=== PATIENT | male | born 1965 | race Caucasian/White ===

== ENCOUNTER 2025-08-05 14:23 | Outpatient (CLI) | payer OTHER, SELFPAY ==
--- NOTE | ~2025-08-05 | CT_ITS ---
EXAMINATION: CT sinus wo con COMPARISON: None HISTORY: J32.9 - Chronic sinusitis, unspecified TECHNIQUE: Axial images were obtained without IV contrast. Sagittal, coronal reconstruction images were obtained from the axial views. CT scan performed using dose optimization techniques including the following automated exposure control; adjustment of mA and/or kV; use of iterative reconstruction technique. Automatic exposure control was used to reduce radiation dose. Permanent radiation dose record is archived to PACS. FINDINGS: Visualized brain parenchyma, optic globes and soft tissues appear unremarkable Frontal sinuses are diminutive. Minimal mucosal thickening in the ethmoidal air cells. The maxillary sinuses are unremarkable. The ostiomeatal complexes are patent. Nasal septum in the midline. No significant thickening of the turbinates on either the nasal cavities. Sphenoid sinuses are unremarkable. No osseous destruction or wall thickening is identified. IMPRESSION: Minimal sinusitis Reviewed, dictated and finalized at location P. MAIN [facility]TER IMPRESSION: Minimal sinusitis
--- OUTSIDE RECORDS SUMMARY | 2025-08-05 15:24 | XMS_ITS | Clinical Summary ---
Author Organization [facility] Address [address] [place] [address] Care Team Providers Care Pricing Supervisor Name Role Phone Eriberto Romero MD Primary Care Provider [phone] Source Comments [facility],non-owned Affiliates and Associated Physician Practices is amultiple site organization consisting of ambulatory clinics and hospital sitesin [place], [place], [place] and [place]. This disclosure is being madepursuant to the Care Everywhere program and may not contain all information available regarding this patient. Last updated 18.[facility] Allergies No known active allergies Medications * This document contains information received from the source organization and may not represent a complete record from that organization. * Be aware that medications may not be up to date on this document. Alwaysverify current medications with the patient. SUTAB [id number] MG TABS Take 1 Dose by mouth once daily 07/09/20 21 Active doxycycline hyclate (Vibramycin) 100 MG capsule Take 1 (one) capsule by mouth 09/28/19 24 Active lisinopril-hydroCH LOROthiazide (Prinzide; Zestoretic) 20-25 MG tabletIndications: Essential (primary) hypertension Take 1 (one) tablet by mouth once daily 90 tablet 1 10/05/19 24 Active dulaglutide (Trulicity) 0.75 MG/0.5ML injectionIndicatio ns:Type 2 diabetes mellitus without complication, without long-term current use of insulin (HCC) Inject 0.5 mL subcutaneously every 7 days 6 mL 1 10/05/19 24 Active hydrocortisone (Hytone) 2.5 % creamIndications:O ther seborrheic dermatitis Apply to affected area 2 times daily as needed 20 g 3 10/05/19 24 Active mupirocin (Bactroban) 2 % ointment Apply to affected area 3 times daily 22 g 10/05/19 24 Active budesonide-formote rol (Symbicort) 80-4.5 MCG/ACT inhaler Take 2 (two) puffs by mouth 2 times daily 10.2 g 3 10/05/19 24 Active triamcinolone (Nasacort Aq) 55 MCG/ACT nasal inhaler [place] 2 (two) sprays into each nostril once daily 50.7 mL 4 10/05/19 24 Active omeprazole (PriLOSEC) 20 MG capsuleIndications :Erythematous gastropathy Take 1 (one) capsule by mouth daily before breakfast 90 capsule 3 10/05/19 24 Active pimecrolimus (Elidel) 1 % creamIndications:A topic Dermatitis,Rosacea ,Worsening rosacea with hydrocortisone Apply to 2 times daily. 30 days supply. Reasons: Atopic Dermatitis, Rosacea, Worsening rosacea with hydrocortisone 100 g 5 10/05/19 24 Active vitamin D, ergocalciferol, (Drisdol) 1.25 MG (43563 UT) capsuleIndications :Medication refill Take 1 (one) capsule by mouth every 7 days 4 capsule 5 10/05/19 24 Active montelukast (Singulair) 10 MG tabletIndications: Medication refill Take 1 (one) tablet by mouth once daily 90 tablet 4 10/05/19 24 Active tadalafil (Cialis) 20 MG tabletIndications: Hypogonadism in male Take 1 (one) tablet by mouth once daily as needed (before sex for a better erection) 10 tablet 5 10/05/19 24 Active rosuvastatin (Crestor) 40 MG tabletIndications: Type 2 diabetes mellitus with complications (HCC) Take 1 (one) tablet by mouth once daily 90 tablet 1 10/05/19 24 Active benzonatate (Tessalon) 100 MG capsuleIndications :Acute bacterial sinusitis Take 1 (one) capsule by mouth 3 times daily 30 capsule 10/05/19 24 Active ketoconazole (Nizoral) 2 % shampooIndications :Other seborrheic dermatitis APPLY TO FACE AND SCALP IN SHOWER TIW. LEAVE ON FOR 3-5 MINUTES PRIOR TO WASHING OFF. 120 mL 5 06/03/20 24 Active gabapentin (Neurontin) 300 MG capsuleIndications :Musculoskeletal pain,Restless legs syndrome (RLS) TAKE 2 CAPSULES 3 TIMES A DAY FOR NEUROPATHIC PAIN REASONS: DISEASE OF THE PERIPHERAL NERVES 180 capsule 1 09/19/20 24 Active traZODone (Desyrel) 150 MG tabletIndications: Insomnia, unspecified type TAKE 1 TABLET BY MOUTH EVERYDAY AT BEDTIME 90 tablet 10/24/19 25 Active fexofenadine (Jia) 180 MG tablet TAKE 1 TABLET BY MOUTH EVERY DAY 90 tablet 3 12/19/19 25 Active DULoxetine (Cymbalta) 60 MG capsuleIndications :Musculoskeletal pain Take 1 (one) capsule by mouth once daily Last fill 30 capsule 02/03/20 25 Active albuterol HFA (Proventil; Ventolin; Proair) 108 (90 Base) MCG/ACT inhaler INHALE 2 (TWO) PUFFS BY MOUTH ONCE DAILY 18 g 5 03/02/20 25 Active traZODone (Desyrel) 100 MG tabletIndications: Insomnia, unspecified type TAKE 1 TABLET BY MOUTH EVERYDAY AT BEDTIME 90 tablet 3 05/19/20 25 Active triamcinolone acetonide (Kenalog) 0.1 % cream APPLY TO BACK AND CHEST TWICE DAILY 60 g 3 06/22/20 25 Active OXcarbazepine (Trileptal) 600 MG tabletIndications: Medication refill Take 1 (one) tablet by mouth 2 times daily for 30 days 60 tablet 06/22/20 25 Active Azelastine HCl 137 MCG/SPRAY SOLN SPRAY 1 SPRAY INTO THE NOSE 2 TIMES DAILY 30 mL 1 06/22/20 25 Active Active Problems Patient Care Coordination No te Formatting of this note migh t be different from the original. Enrolled in [employer] BP & Epx HTN programs; two text msgs weekly to record self-reported BP. Problem Noted Date Diagnosed Date Cervical myelopathy with cervical radiculopathy 09/05/2021 Vitamin D deficiency 09/03/2017 Wheezing 09/03/2017 History of colonic polyps 05/30/2017 Overview (12/24/2017): [facility]oscopy at [facility] 2016 showed polyps, path report?, was told to return in one year Snoring 05/14/2017 Overview (03/23/2019): Overview: Home polysomnography testing did not demonstrate an elevated apnea-hypopnea index in April 2017 Home polysomnography testing did not demonstrate an elevated apnea-hypopnea index in April 2017 Calculus of kidney 04/26/2017 Generalized anxiety disorder 01/01/2017 Major depressive disorder, r ecurrent severe without psychotic features 01/01/2017 Essential (primary) hypertension 12/25/2016 Shortness of breath 12/05/2016 Abnormal colonoscopy 12/05/2016 Hyperlipidemia 12/04/2016 Localized edema 12/04/2016 Type 2 diabetes mellitus with complications 11/22 Bilateral lower extremity edema 12/04/2016 Encounters Date Type Department Care Team Description 06/21/2025 Refill [facility] - Family Medicine [address] [place] [address], [place] [address] Eriberto Romero MD Refill Request 06/20/2025 Refill [facility] [facility], [place] [address] Eriberto Romero MD Refill Request 05/19/2025 Refill [facility] - Sleep Services [address] [place] [address] Rima Bloom, DO Refill Request from Last 3 Months Immunizations Immunization Administration Dates Next Due INFLUENZA VACCINE, TRIV. (AF LURIA, FLUZONE TRIVALENT; 6MO+) (IIV3) 07/19/2016 COVID PFIZER 12+YR 30MCG/0.3mL 08/23/2023 Covid Pfizer primary Monoval ent 12+ yr 0.3ml 02/16/2022 Covid Pfizer primary monoval ent 12+ yr 0.3mL Purple cap 07/23/2021 FLU VACCINE TRI IIV3 SPLIT I M (FLUVIRIN) 07/08/2015,06/08/2014 HEP B VACCINE, ADULT 3 DOSE 08/10/2021 Hep B, Adjuvanted 10/10/2022 INFLUENZA VACCINE 07/23/2021 INFLUENZA VACCINE, CELL CULT URE, QUADR. (FLUCELVAX QUADRIVALENT; 6MO+) (CCIIV4) 08/23/2023 INFLUENZA VACCINE, QUADR. (F LUZONE; FLULAVAL; FLUARIX; AFLURIA QUADRIVALENT; 6MO+), 0.5 ML (IIV4) 09/04/2022,07/23/2021,07/05/2019,2018 PNEUMOCOCCAL PCV20 CONJ VAC IM 06/12/2022 PNEUMOCOCCAL PPSV23 09/04/2022,01/26/2016 TDAP (7yrs+) 05/12/2019 Zoster Hzv Vacc Recombinant Inj Im 01/05/2022, iNFLUENZA VACCINE, RECOM-RIOS, QUADR. (FLUBLOCK QUADRIVALENT; 18Y+) (RIV4) 07/28/2020 Family History Medical History Relation Name Comments CAD (Coronary Artery Disease) Brother CAD (Coronary Artery Disease) Father Elevated Lipids Father Diabetes Mother Hodgkin's lymphoma Sister 1 Cancer - Ovarian Sister 2 None Known Sister 3 Relation Name Status Comments Brother Father Mother Alive Sister 1 Alive Sister 2 Alive Sister 3 Alive Social History Tobacco Use Types Packs/Day Years Used Date Smoking Tobacco: Never Smokeless Tobacco: Never Alcohol Use Standard Drinks/Week Comments No 0 (1 standard drink = 0.6 oz pur e alcohol) AUDIT-C Answer Date Recorded Q1: How often do you have a drink containing alc ohol? 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 Not on file Not on file Not on file Last Filed Vital Signs Vital Sign Reading Time Taken Comments Blood Pressure 114/68 03/20/2023 10:04 AM CDT Pulse 59 03/20/2023 10:04 AM CDT Temperature 36.8 C (98.3 F) 02/07/2022 9:44 AM CDT Respiratory Rate 18 09/06/2021 7:38 AM [facility] Oxygen Saturation 97% 11/22/2022 2:28 PM [employer] Inhaled Oxygen Concentration - - Weight 114.3 kg (252 lb) 10/01/2023 1:12 PM [facility] Height 177.8 cm (5' 10) 10/01/2023 1:12 PM [facility] Body Mass Index 36.16 10/01/2023 1:12 PM [facility] Plan of Treatment Health Maintenance Due Date Last Done Comments COLOGUARD (AGES 45-75) - COLON CA SCREENING 1965 CT COLONOGRAPHY - COLON CA SCREENING 1965 FIT - COLON CA SCREENING 1965 FLEX SIG - COLON CA SCREENING 1965 DIABETES-FOOT EXAM WITH MONOFILAMENT 05/12/2020 05/12/2019, 02/13/2018, 02/13/2018 HEPATITIS B VACCINE (3 of 3 - Risk 3-dose series) 12/05/2022 10/10/2022, 08/10/2021 DIABETES-HGB A1C 09/19/2023 03/20/2023, 03/2023, 08/25/2022, Additional history exists DIABETES-SERUM CREATININE 03/20/20242022, 08/25/2022, 09/06/2021, Additional history exists DEPRESSION SCREENING 09/24/2024 08/24/2022, 07/26/2022, 04/20/2022, Additional history exists DIABETES - URINE PROTEIN SCREENING 09/24/2024 08/25/2022, 02/27/2020, 03/04/2018, Additional history exists DIABETES RETINOPATHY SCREENING 09/28/2024 09/28/2022, 09/28/2022, 06/04/2017, Additional history exists COVID-19 VACCINE (2024- season) 2025 08/23/2023, 06/12/2022, 02/16/2022, Additional history exists INFLUENZA VACCINE (#1) 2025 , 09/04/2022, 07/23/2021, Additional history exists DTAP/TDAP/TD VACCINES (2 - Td or Tdap) 05/12/2029 05/12/2019 COLON MONITORING 07/13/2031 07/13/2021, 07/13/2021 COLONOSCOPY - COLON CA SCREENING 07/13/2031 07/13/2021, 07/13/2021 Colorectal Cancer Screening 07/13/2031 Respiratory Syncytial Virus (RSV) Vaccine Pt: or over 60 yrs (1 - 1-dose 75+ series) 2038 ZOSTER VACCINE Completed 01/05/2022, 08/10/2021 PNEUMOCOCCAL VACCINE 50+ Completed 022, 06/12/2022, 01/26/2016 HEPATITIS C SCREENING Completed 03/20/2023 HIV SCREENING Discontinued 03/20/2023 HIB VACCINE Aged Out No longer eligi ble based on patient's age to complete this topic HPV VACCINE Aged Out No longer eligi ble based on patient's age to complete this topic MENINGOCOCCAL (Group B) VACCINE SHARED DECISION-MAKING Aged Out No longer eligible based on patient's age to complete this topic MENINGOCOCCAL GROUPS A/C/Y/W VACCINE Aged Out No longer eligible based on patient's age to complete this topic Goals Goal Patient Goal Type Associated Problems Recent Progress Patient-Stated? Author Blood Pressure < 140/90 Blood Pressure 114/68( 023 10:04 AM CDT) No Alie Puente RN Medical Devices Implanted Type Area Baseball Club Manager Device Identifier Shelf Expiration Date Model / Serial / Lot Graft Bone Ac Cnxs 5cc Algrf Implanted:Qty: 1 on 09/05/2021 by Ross Lazar MD at [facility] N/A: Spine Cervical [employer] 04/20/2022 [id number] / / [id number] Xc Mini Endcap, 15x12 Contour Top 12mm Implanted:Qty: 1 on 09/05/2021 by Ross Lazar MD at [facility] N/A: Spine Cervical Nuvasive [id number] / / X Core Mine Core, 12mm 15-20 Implanted:Qty: 1 on 09/05/2021 by Ross Lazar MD at [facility] N/A: Spine Cervical Nuvasive [id number] / / Xc Mini Endcap 15x12 Parallel, 12mm Implanted:Qty: 1 on 09/05/2021 by Ross Lazar MD at [facility] N/A: Spine Cervical Nuvasive [id number] / / Xc Mini Lock Screw, Endcap Implanted:Qty: 2 on 09/05/2021 by Ross Lazar MD at [facility] N/A: Spine Cervical Nuvasive [id number] / / Cohere Cervical, [id number] 7degree Implanted:Qty: 1 on 09/05/2021 by Ross Lazar MD at [facility] N/A: Spine Cervical Nuvasive 09/19/2025 [id number] / / [id number] Acp Plate 56mm, 3 Level Implanted:Qty: 1 on 09/05/2021 by Ross Lazar MD at [facility] N/A: Spine Cervical Nuvasive [id number] / / Acp Screw, 3.5x15mm, Self Tap, Variable Implanted:Qty: 2 on 09/05/2021 by Ross Lazar MD at [facility] N/A: Spine Cervical Nuvasive [id number] / / Acp Screw, 3.5x17mm, Self Tap, Variable Implanted:Qty: 4 on 09/05/2021 by Ross Lazar MD at [facility] N/A: Spine Cervical Nuvasive [id number] / / Procedures Procedure Name Priority Date/Time Associated Diagnosis Comments COMPREHENSIVE METABOLIC PANEL Routine 03/20/2023 11:55 AM CDT Weight loss HEPATITIS C ANTIBODY W RFLX PCR Routine 03/20/2023 11:55 AM CDT Need for hepatitis C screening test HEMOGLOBIN A1C Routine 03/20/2023 11:55 AM CDT Type 2 diabetes mellitus without complication, without long-term current use of insulin HIV-1 HIV-2 ANTIBODY + HIV P24 AG PANEL Routine 03/20/2023 11:55 AM CDT Weight loss MICROALB/CREAT RATIO URINE RANDOM PANEL Routine 08/25/2022 12:30 PM [facility] Type 2 diabetes mellitus without complication, without long-term current use of insulin ENDOSCOPY, COLON, SCREENING Routine 07/13/2021 2:43 PM CDT from Last 3 Months or Most Recently Relevant to Health Maintenance Results * HEPATITIS C ANTIBODY W RFLX PCR (03/20/2023 11:55 AM CDT) Hepatitis C Antibody Non Reactive Non Reactive 03/21/2023 10:11 AM CDT [facility] ([facility]) Blood BLOOD SPECIMEN / Unknown Lab Venipuncture / Unknown 03/20/2023 11:55 AM CDT 03/20/2023 12:23 PM CDT Narrative [facility] ([facility]) - 03/21/2023 10:11 AM CDT Performed at: [facility] [address] [place], [place] [id number] Lead Pastor: Karan Gibson PhD, Phone: [phone] us Eriberto Romero MD LAB - CHEMISTRY ORDERABLES Final Result Performing Organization Address City/[facility]/ZIP Co de Phone Number [facility] ([facility]) [address] [place] [address], [facility] * HIV-1 HIV-2 ANTIBODY + HIV P24 AG PANEL (03/20/2023 11:55 AM CDT) Pathologist [facility] HIV Antigen/Antibod y 1 & 2 Non-reacti ve Non-react [place] 03/20/2023 1:41 PM CDT [facility] Comment:No Laboratory eviden ce of HIV infection. Blood BLOOD SPECIMEN / Unknown Lab Venipuncture / Unknown 03/20/2023 11:55 AM CDT 03/20/2023 12:24 PM CDT Eriberto Romero MD LAB - CHEMISTRY ORDERABLES Final Result [facility] [address] [place] [phone], [facility] [phone] * (ABNORMAL) HEMOGLOBIN A1C (03/20/2023 11:55 AM CDT) Hemoglobin A1c 6.0(H) <=5.6 % 03/20/2023 1:23 PM [facility] Estimated Average Glucose 126 mg/dL 03/20/2023 1:23 PM [facility] Comment: HbA1c Interpretation: Normal : < 5.7% Pre-diabetes: 5.7-6.4% Diabetes: Equal to or greater than 6.5% Test results diagnostic of diabetes should be repeated for confirmation. Treatment target values recommended by ADA and other clinical organizations should be used to evaluate metabolic control in patients. Reference: [place] Diabetes Association, Standards of Care in Diabetes -2020 In patients 70 years and older consider HbA1c target range of 7.0-7.5% (Reference: Fletcher Cain et al. HEDY. 2012) The Sebia assay for the measurement of HbA1c is a National Glycohemoglobin Standardization Program (NGSP) certified method. Blood BLOOD SPECIMEN / Unknown Lab Venipuncture / Unknown 03/20/2023 11:55 AM CDT 03/20/2023 12:32 PM CDT us Eriberto Romero MD LAB - CHEMISTRY ORDERABLES Final Result [facility] [address] [place] [phone], [facility] [phone] * (ABNORMAL) COMPREHENSIVE METABOLIC PANEL (03/20/2023 11:55 AM CDT) Pathologist [facility] BUN 12 7 - 26 mg/dL 03/20/2023 1:05 PM [facility] Creatinine 0.74 0.71 - 1.16 mg/dL 03/20/2023 1:05 PM [facility] Sodium 140 136 - 145 mmol/L 03/20/2023 1:05 PM [facility] Potassium 3.5 3.5 - 4.5 mmol/L 03/20/2023 1:05 PM [facility] Chloride 104 98 - 107 mmol/L 03/20/2023 1:05 PM [facility] CO2 28 22 - 29 mmol/L 03/20/2023 1:05 PM [facility] Glucose 104 70 - 115 mg/dL 03/20/2023 1:05 PM [facility] Calcium 9.7 8.4 - 10.2 mg/dL 03/20/2023 1:05 PM [facility] Protein Total 7.2 6.0 - 8.3 g/dL 03/20/2023 1:05 PM [facility] Albumin 4.0 3.4 - 5.0 g/dL 03/20/2023 1:05 PM [facility] Bilirubin Total 0.3 0.2 - 1.2 mg/dL 03/20/2023 1:05 PM [facility] Alkaline Phosphatase 129 40 - 150 U/L 03/20/2023 1:05 PM [facility] ALT 138(H) 5 - 55 U/L 03/20/2023 1:05 PM [facility] AST 57(H) 5 - 34 U/L 03/20/2023 1:05 PM [facility] Anion Gap 12 8 - 18 03/20/2023 1:05 PM [facility] BUN/Creatinine Ratio 16 7 - 23 03/20/2023 1:05 PM [facility] Osmolality Calculated 290 270 - 300 mOsm/kg 03/20/2023 1:05 PM [facility] Albumin/Globulin Ratio 1.3 1.1 - 2.3 03/20/2023 1:05 PM [facility] eGFR by CKD-EPI >90 >=90 mL/min/1.7 3 m2 03/20/2023 1:05 PM [facility] Blood BLOOD SPECIMEN / Unknown Lab Venipuncture / Unknown 03/20/2023 11:55 AM CDT 03/20/2023 12:24 PM [facility] us Eriberto Romero MD LAB - CHEMISTRY ORDERABLES Final Result [facility] [address] [place] [address], [facility] [phone] * MICROALB/CREAT RATIO URINE RANDOM PANEL (08/25/2022 12:30 PM [facility]) Albumin Random Urine 14.9 Not Established ug/mL 08/25/2022 1:31 PM [facility] Creatinine Urine 170 Not Established mg/dL 08/25/2022 1:31 PM [facility] Urine Albumin/Creati nine Ratio 9 <30 mg/g 08/25/2022 1:31 PM [facility] Urine URINE SPECIMEN OBTAINED BY CLEAN CATCH PROCEDURE / Unknown Collection / Unknown 08/25/2022 12:30 PM [facility] 08/25/2022 1:12 PM [facility] us Eriberto Romero MD LAB - URINE CHEMISTRY ROMEO GOTTI Final Result [address] [address], [facility] [phone] * ENDOSCOPY, COLON, SCREENING (07/13/2021 2:43 PM CDT) Report Endoscopy POC Endoscopy Department Report _ Patient Name: Fish Pinon Procedure Date: 07/13/2021 2:43 PM Date of : 1965 Classification: Outpatient Gender: Male Ethnicity: Not or Race: White _ Providers: Marti Gilmore MD Referring MD: Procedure: Colonoscopy Indications: High risk colon cancer surveillance: Personal history of colonic polyps Medications: Monitored Anesthesia Care Description of Procedure: Pre-Anesthesia Assessment: - Prior to the procedure, a History and Physical was performed, and patient medications and allergies were reviewed. The patient's tolerance of previous anesthesia was also reviewed. The risks and benefits of the procedure and the sedation options and risks were discussed with the patient. All questions were answered, and informed consent was obtained. Prior Anticoagulants: The patient has taken no previous anticoagulant or antiplatelet agents except for NSAID medication. ASA Grade Assessment: III - A patient with severe systemic disease. After reviewing the risks and benefits, the patient was deemed in satisfactory condition to undergo the procedure. After I obtained informed consent, the scope was passed under direct vision. Throughout the procedure, the patient's blood pressure, pulse, and oxygen saturations were monitored continuously. The [id number]-[id number] was introduced through the anus and advanced to the cecum, identified by appendiceal orifice and ileocecal valve. The colonoscopy was somewhat difficult due to inadequate bowel prep. Successful completion of the procedure was aided by lavage. The patient tolerated the procedure fairly well. The quality of the bowel preparation was evaluated using the BBPS (Ebony Bowel Preparation Scale) with scores of: Right Colon = 1 (portion of mucosa seen, but other areas not well seen due to staining, residual stool and/or opaque liquid), Transverse Colon = 2 (minor amount of residual staining, small fragments of stool and/or opaque liquid, but mucosa seen well) and Left Colon = 3 (entire mucosa seen well with no residual staining, small fragments of stool or opaque liquid). The total BBPS score equals 6. The prep was adequate after vigorous washing. The ileocecal valve, appendiceal orifice, and rectum were photographed. Findings: A 4 mm polyp was found in the rectum. The polyp was sessile. The polyp was removed with a cold biopsy forceps. Polyp resection was incomplete. The resected tissue was retrieved. A moderate amount of semi-liquid stool was found in the transverse colon, in the ascending colon and in the cecum, making visualization difficult. Lavage of the area was performed using a large amount of sterile water, resulting in clearance with adequate visualization. Non-bleeding external hemorrhoids were found during retroflexion. The hemorrhoids were small. Estimated Blood Loss: Estimated blood loss: none. Complications: No immediate complications. Impression: - One 4 mm polyp in the rectum, removed with a cold biopsy forceps. Incomplete resection. Resected tissue retrieved. - Stool in the transverse colon, in the ascending colon and in the cecum. - Non-bleeding external hemorrhoids. Recommendation: - Patient has a contact number available for emergencies. The signs and symptoms of potential delayed complications were discussed with the patient. Return to normal activities tomorrow. Written discharge instructions were provided to the patient. - Resume previous diet. - Continue present medications. - Await pathology results. - Repeat colonoscopy is recommended. The colonoscopy date will be determined after pathology results from today's exam become available for review. - Return to referring physician. Attending Participation: I personally performed the entire procedure. Procedure Code(s): --- Professional --- 61304, Colonoscopy, flexible; with biopsy, single or multiple Diagnosis Code(s): --- Professional --- Z86.010, Personal history of colonic polyps K62.1, Rectal polyp K64.4, Residual hemorrhoidal skin tags CPT copyright 2019 [place] [employer]. All rights reserved. The codes documented in this report are preliminary and upon plasma specialist review may be revised to meet current compliance requirements. Marti Gilmore MD 07/13/2021 3:20:52 PM This report has been signed electronically. Note Initiated On: 07/13/2021 2:43 PM Number of Addenda: [address] [id number] [facility] 07/13/2021 2:43 PM CDT Marti Gilmore MD GI PROCEDURE ORDERABLES Edited Result - Final [facility] from Last 3 Months or Most Recently Relevant to Health Maintenance Insurance MEDICARE MANAGED CARE PLAN GENERIC MEDICARE ADV SELF PAY NO INSURANCE Member Subscriber Plan / Payer (Ef fective for All Dates) Name:Fish Pinon Member ID:Not on file Relation to Subscriber:Self Name:KathrinFish Subscriber ID:Not on file Payer ID:Not on file Group ID:Not on file Type:Self Pay Address: [place], [place] Advance Directives * Full Code (Latest Code Status on File) Date Activated Date Inactivated Comments 09/05/2021 3:27 PM 09/06/2021 3:04 PM * Full Code Date Activated Date Inactivated Comments 09/05/2021 3:27 PM 09/05/2021 3:27 PM Care Teams Pricing Supervisor Relationship Specialty Start Date End Date Eriberto Romero MD [address] [phone] PCP - General 09/04/22
--- OUTSIDE RECORDS SUMMARY | 2025-08-05 15:24 | XMS_ITS | Clinical Summary ---
Author Organization [facility] Address [address] [place] [address] Care Team Providers Care Building Construction Ironworker Name Role Phone Mariana Yepez MD Primary Care Provider +1 -[phone] Allergies No known active allergies Medications albuterol HFA (PROVENTIL HFA,VENTOLIN HFA,PROAIR HFA) 90 mcg/actuation inhaler Inhale 1 puff Active azelastine (ASTELIN) 137 mcg (0.1 %) nasal spray SPRAY 1 SPRAY INTO THE NOSE 2 TIMES DAILY Active budesonide-form oteroL (SYMBICORT) 80-4.5 mcg/actuation inhaler Take 2 puffs by mouth 2 (two) times a day 10/05/19 24 Active doxycycline (doxycycline hyclate) 100 mg capsule Take 1 tablet/capsule (100 mg total) by mouth 09/28/19 24 Active Trulicity 0.75 mg/0.5 mL pen injector INJECT 0.5 ML SUBCUTANEOUSLY EVERY WEEK Active DULoxetine DR (CYMBALTA) 60 mg capsule Take by mouth daily Active ergocalciferol (VITAMIN D) 50,000 unit capsule TAKE 1 CAPSULE EVERY WEEK BY ORAL ROUTE. Active fexofenadine (KADY) 180 mg tablet Take 1 tablet (180 mg total) by mouth daily Active gabapentin (NEURONTIN) 300 mg capsule Take 1 capsule (300 mg total) by mouth Active hydrocortisone 2.5 % cream Apply topically 2 (two) times a day as needed 10/05/19 24 Active ketoconazole (NIZORAL) 2 % shampoo APPLY TO FACE AND SCALP IN SHOWER TIW. LEAVE ON FOR 3-5 MINUTES PRIOR TO WASHING OFF. Active lisinopril-hydr oCHLOROthiazide (ZESTORETIC) 20-25 mg per tablet Take 1 tablet by mouth daily Active meloxicam (MOBIC) 15 mg tablet Take 1 tablet (15 mg total) by mouth daily 07/01/20 24 Active metFORMIN (GLUCOPHAGE) 500 mg tablet Take 1 tablet (500 mg total) by mouth 2 (two) times a day 06/15/20 24 Active montelukast (SINGULAIR) 10 mg tablet Take 1 tablet (10 mg total) by mouth daily Active mupirocin (BACTROBAN) 2 % ointment Apply topically 3 (three) times a day 10/05/19 24 Active OXcarbazepine (TRILEPTAL) 600 mg tablet TAKE 1 (ONE) TABLET BY MOUTH 2 TIMES DAILY Active rosuvastatin (CRESTOR) 40 mg tablet Take 1 tablet (40 mg total) by mouth daily Active tadalafiL (CIALIS) 20 mg tablet Take 1 tablet (20 mg total) by mouth daily as needed 10/05/19 24 Active traZODone (DESYREL) 100 mg tablet Take 1 tablet (100 mg total) by mouth nightly 05/31/20 24 Active traZODone (DESYREL) 150 mg tablet Take 1 tablet (150 mg total) by mouth nightly Active triamcinolone (NASACORT) 55 mcg nasal inhaler Administer 2 sprays into affected nostril(s) daily 10/05/19 24 Active triamcinolone (KENALOG) 0.1 % cream APPLY TO BACK AND CHEST TWICE DAILY Active pantoprazole DR (PROTONIX) 40 mg EC tabletIndicatio ns:Gastroesopha geal reflux disease without esophagitis TAKE 1 TABLET BY MOUTH DAILY BEFORE BREAKFAST 30 tablet 3 04/22/20 25 Active Active Problems Problem Noted Date Diagnosed Date Gastroesophageal reflux disease without esophagi tis 07/09/2024 Surgical History Surgery Date Site/Laterality Comments UPPER GASTROINTESTINAL ENDOSCOPY COLONOSCOPY UMBILICAL HERNIA REPAIR CERVICAL FUSION 3-5 Medical History Medical History Date Comments GERD (gastroesophageal reflux disease) Hypertension Hyperlipidemia Asthma Type 2 diabetes mellitus Fatty liver Depression Anxiety Family History Medical History Relation Name Comments Hodgkin's lymphoma Sister Relation Name Status Comments Sister Social History Tobacco Use Types Packs/Day Years Used Date Smoking Tobacco: Never Smokeless Tobacco: Former Tobacco Cessation:Counseling Given: Not Answered Comments:Former vaper AUDIT-C Answer Date Recorded Q1: How often do you have a drink containing alc ohol? Monthly or less 07/14/2024 Q2: How many drinks containi ng alcohol do you have on a typical day when you are drinking? 1 or 2 07/14/2024 Q3: How often do you have si x or more drinks on one occasion? Never 07/14/2024 Personal Safety Answer Date Recorded Have you ever been in or are you currently in a harmful physical or emotional relationship or is someone making you feel afraid or unsafe? Denies 07/14/2024 Sex and Gender Information Value Date Recorded Sex Assigned at Not on file Legal Sex Male 1:56 PM CDT Gender Identity Not on file Sexual Orientation Not on file Last Filed Vital Signs Vital Sign Reading Time Taken Comments Blood Pressure 156/80 07/14/2024 8:44 AM CDT Pulse 52 07/14/2024 8:44 AM CDT Temperature 36.3 C (97.3 F) 07/14/2024 6:44 AM CDT Respiratory Rate 10 07/14/2024 8:44 AM CDT Oxygen Saturation 98% 07/14/2024 8:44 AM CDT Inhaled Oxygen Concentration - - Weight - - Height - - Body Mass Index - - Plan of Treatment Health Maintenance Due Date Last Done Comments Colon Cancer Screening-Colonoscopy 1963 Depression Screening 1963 Hepatitis C Screening 1963 Prostate Cancer Screening-PSA 1963 Regular Well Visit/Exam 18-64 1981 Covid-19 Vaccine (2024-2 6 season) 2025 08/23/2023, 06/12/2022, 02/16/2022, Additional history exists Influenza Vaccine (#1) 2025 , 09/04/2022, 07/23/2021, Additional history exists DTaP/Tdap/Td Vaccine (2 - Td or Tdap) 05/12/2029 05/12/2019 Zoster Vaccine Completed 01/05/2022, 08/10/2021 Pneumococcal vaccine <65 Completed 022, 06/12/2022, 01/26/2016 Hepatitis B Screening Completed 10/10/2022, 11/17/2 021 Medical Devices Implanted Type Area Dishtank Operator Device Identifier Shelf Expiration Date Model / Serial / Lot Mesh Umbilical Cervical Screws And Pins Neck Description:Implanted in 3,4 , and 5 Insurance [facility] Care Teams Building Construction Ironworker Relationship Specialty Start Date End Date Mariana Yepez MD [address] [place] [address] PCP - General Refrigerating Engineer Head 01/18/24
--- OUTSIDE RECORDS SUMMARY | 2025-08-05 15:24 | XMS_ITS | Encounter Summary ---
Author Organization [facility] Address [address] [place] [address] Care Team Providers Care Metal Finisher Name Role Phone Pallavi Altman Primary Care Provider +1 -[phone] Eriberto Romero MD Primary Care Provider +1- [phone] Pallavi Altman Primary Care Provider +1 -[phone] Eriberto Romero MD Primary Care Provider +1- [phone] Reason for Visit * Reason Onset Date Comments MEDICATION REFILL 04/13/2020 Encounter Details Date Type Department Care Team (Late st Contact Info) Description 04/13/2020 Refill [facility] [address] [facility] [address] [place] [address] Pallavi Altman APRN-CNP [address] [place] [phone] MEDICATION REFILL Social History Tobacco Use Types Packs/Day Years Used Date Smoking Tobacco: Never Smokeless Tobacco: Never Alcohol Use Standard Drinks/Week Comments No 0 (1 standard drink = 0.6 oz pur e alcohol) Sex and Gender Information Value Date Recorded Sex Assigned at Male 09/26/2023 9:38 AM PROGRAM EVALUATOR Legal Sex Male 5:17 PM PROGRAM EVALUATOR Gender Identity Male 09/26/2023 9:38 AM PROGRAM EVALUATOR Sexual Orientation Straight 09/26/2023 9: 38 AM PROGRAM EVALUATOR COVID-19 Exposure Response Date Recorded In the last month, have you been in contact with someone who was confirmed or suspected to have Coronavirus / COVID-19? Unable to assess 04/16/2020 1:36 PM CDT documented as of this encounter Miscellaneous Notes * Telephone Encounter - Claudia Garcia - 04/14/2020 10:49 AM CDT This patient is requesting a refill on medication Last office visit:01/15/20 Recommended next office visit:04/15/20 Next scheduled office visit:04/15/20 @Medication requesting@ Taken by:Claudia MARTINEZ documented in this encounter Plan of Treatment Not on file documented as of this encounter Goals Goal Patient Goal Type Associated Problems Recent Progress Patient-Stated? Author Blood Pressure < 140/90 Blood Pressure 114/68( 023 10:04 AM CDT) No Alie Puente RN documented as of this encounter Visit Diagnoses Diagnosis Type 2 diabetes mellitus with complication, without long-term current use of insulin (HCC) documented in this encounter Care Teams Metal Finisher Relationship Specialty Start Date End Date Pallavi Altman APRN-CNP PCP - General 05/08/19 11/16/21 Eriberto Romero MD [address] [place] [phone] PCP - General 11/17/21 04/30/22 Pallavi Altman APRN-CNP [address] [place] [phone] PCP - General 05/01/22 09/03/22 Eriberto Romero MD [address] [place] [phone] PCP - General 09/04/22 documented as of this encounter
--- OUTSIDE RECORDS SUMMARY | 2025-08-05 15:24 | XMS_ITS | Encounter Summary ---
Author Organization [facility] Address [address] [facility] [place] [address] Care Team Providers Care Aprn Name Role Phone Pallavi Altman Primary Care Provider +1 -[phone] Eriberto Romero MD Primary Care Provider +1- [phone] Pallavi Altman Primary Care Provider +1 -[phone] Eriberto Romero MD Primary Care Provider +1- [phone] Reason for Visit * Reason Onset Date Comments MEDICATION REFILL 02/25/2021 Encounter Details Date Type Department Care Team (Late st Contact Info) Description 02/25/2021 Refill [facility] [address] [place] [address], [place] [phone] Pallavi Altman APRN-CNP [address] [place] [phone] MEDICATION REFILL Social History Tobacco Use Types Packs/Day Years Used Date Smoking Tobacco: Never Smokeless Tobacco: Never Alcohol Use Standard Drinks/Week Comments No 0 (1 standard drink = 0.6 oz pur e alcohol) Sex and Gender Information Value Date Recorded Sex Assigned at Male 09/26/2023 9:38 AM DIRECTOR PATIENT Legal Sex Male 5:17 PM DIRECTOR PATIENT Gender Identity Male 09/26/2023 9:38 AM DIRECTOR PATIENT Sexual Orientation Straight 09/26/2023 9: 38 AM DIRECTOR PATIENT COVID-19 Exposure Response Date Recorded In the last month, have you been in contact with someone who was confirmed or suspected to have Coronavirus / COVID-19? No / Unsure 02/16/2021 1:53 PM CDT documented as of this encounter Miscellaneous Notes * Telephone Encounter - Tri Saenz - 02/25/2021 1:42 PM CDT Fish Pinon Requested Prescriptions Pending Prescriptions Disp Refills ??? traZODone (DESYREL) 50 MG tablet 180 tablet 0 Sig: Take 2 (two) tablets by mouth at bedtime No Known Allergies Last Refill:01/26/2021 Qty Dispense:180 # of Refills:0 Last OV:10/13/2020 Next OV:none documented in this encounter Plan of Treatment Not on file documented as of this encounter Goals Goal Patient Goal Type Associated Problems Recent Progress Patient-Stated? Author Blood Pressure < 140/90 Blood Pressure 114/68( 023 10:04 AM CDT) No Alie Puente RN documented as of this encounter Visit Diagnoses Diagnosis Insomnia, unspecified type documented in this encounter Care Teams Aprn Relationship Specialty Start Date End Date Pallavi Altman APRN-CNP PCP - General 05/08/19 11/16/21 Eriberto Romero MD [address] [place] [phone] PCP - General 11/17/21 04/30/22 Pallavi Altman APRN-CNP [address] [place] [phone] PCP - General 05/01/22 09/03/22 Eriberto Romero MD [address] [place] [address] PCP - General 09/04/22 documented as of this encounter
--- OUTSIDE RECORDS SUMMARY | 2025-08-05 15:24 | XMS_ITS | Encounter Summary ---
Author Organization [facility] Address [address] [place] [address] Care Team Providers Care Suggestion Clerk Name Role Phone Pallavi Altman Primary Care Provider +1 -[phone] Eriberto Romero MD Primary Care Provider +1- [phone] Pallavi Altman Primary Care Provider +1 -[phone] Eriberto Romero MD Primary Care Provider +1- [phone] Reason for Visit * Reason Onset Date Comments MEDICATION REFILL 10/18/2020 Encounter Details Date Type Department Care Team (Late st Contact Info) Description 10/18/2020 Refill [facility] [address] [place] [address], [place] [phone] Pallavi Altman APRN-CNP [address] [place] [phone] MEDICATION REFILL Social History Tobacco Use Types Packs/Day Years Used Date Smoking Tobacco: Never Smokeless Tobacco: Never Alcohol Use Standard Drinks/Week Comments No 0 (1 standard drink = 0.6 oz pur e alcohol) Sex and Gender Information Value Date Recorded Sex Assigned at Male 09/26/2023 9:38 AM PARTNERSHIP MARKETING MANAGER Legal Sex Male 5:17 PM PARTNERSHIP MARKETING MANAGER Gender Identity Male 09/26/2023 9:38 AM PARTNERSHIP MARKETING MANAGER Sexual Orientation Straight 09/26/2023 9: 38 AM PARTNERSHIP MARKETING MANAGER documented as of this encounter Miscellaneous Notes * Telephone Encounter - Tri Saenz - 10/18/2020 3:19 PM CST called and left a message for pt to call office. NERSHIP MARKETING MANAGER * Telephone Encounter - Pallavi Altman APRN-CNP - 10/18/2020 12:21 PM PARTNERSHIP MARKETING MANAGER Continue with an OTC D3 of 1000 IU daily . Refill of 50,000 IU not indicated . NERSHIP MARKETING MANAGER * Telephone Encounter - Tri Saenz - 10/18/2020 11:35 AM CST Fish Pinon Requested Prescriptions Pending Prescriptions Disp Refills ??? vitamin D, ergocalciferol, (DRISDOL) 1.25 MG (29932 UT) capsule 12 capsule 0 Sig: Take 1 (one) capsule by mouth every 7 days No Known Allergies Last Refill:07/28/2020 Qty Dispense:12 # of Refills:0 Last OV:10/13/2020 Next OV:none NERSHIP MARKETING MANAGER documented in this encounter Plan of Treatment Not on file documented as of this encounter Goals Goal Patient Goal Type Associated Problems Recent Progress Patient-Stated? Author Blood Pressure < 140/90 Blood Pressure 114/68( 023 10:04 AM CDT) No Alie Puente RN documented as of this encounter Visit Diagnoses Diagnosis Medication refill Issue of repeat prescriptions documented in this encounter Care Teams Suggestion Clerk Relationship Specialty Start Date End Date Pallavi Altman APRN-CNP PCP - General 05/08/19 11/16/21 Eriberto Romero MD [address] [phone] PCP - General 11/17/21 04/30/22 Pallavi Altman APRN-CINDY [address] [place] [phone] PCP - General 05/01/22 09/03/22 Eriberto Romero MD [address] [place] [phone] PCP - General 09/04/22 documented as of this encounter
--- OUTSIDE RECORDS SUMMARY | 2025-08-05 15:24 | XMS_ITS | Encounter Summary ---
Author Organization [facility] Address [address] [facility] [place] [address] Care Team Providers Care Community Support Specialist Name Role Phone Pallavi Altman Primary Care Provider +1 -[phone] Eriberto Romero MD Primary Care Provider +1- [phone] Pallavi Altman Primary Care Provider +1 -[phone] Eriberto Romero MD Primary Care Provider +1- [phone] Reason for Visit * Reason Onset Date Comments MEDICATION REFILL 06/14/2021 Encounter Details Date Type Department Care Team (Late st Contact Info) Description 06/14/2021 Refill [facility] [address] [place] [phone] Isai Delacruz MD No info available MEDICATION REFILL Social History Tobacco Use Types Packs/Day Years Used Date Smoking Tobacco: Never Smokeless Tobacco: Never Alcohol Use Standard Drinks/Week Comments No 0 (1 standard drink = 0.6 oz pur e alcohol) Sex and Gender Information Value Date Recorded Sex Assigned at Male 09/26/2023 9:38 AM GLUE WHEEL OPERATOR Legal Sex Male 5:17 PM GLUE WHEEL OPERATOR Gender Identity Male 09/26/2023 9:38 AM GLUE WHEEL OPERATOR Sexual Orientation Straight 09/26/2023 9: 38 AM GLUE WHEEL OPERATOR documented as of this encounter Plan of Treatment Not on file documented as of this encounter Goals Goal Patient Goal Type Associated Problems Recent Progress Patient-Stated? Author Blood Pressure < 140/90 Blood Pressure 114/68( 023 10:04 AM CDT) Alie Osorio RN documented as of this encounter Visit Diagnoses Diagnosis Cervical stenosis of spinal canal Spinal stenosis in cervical region Neck pain Cervicalgia documented in this encounter Care Teams Community Support Specialist Relationship Specialty Start Date End Date Pallavi Altman APRN-CINDY PCP - General 05/08/19 11/16/21 Eriberto Romero MD [address] [place] [address] PCP - General 11/17/21 04/30/22 Pallavi Altman APRN-CNP [address] [place] [address] PCP - General 05/01/22 09/03/22 Eriberto Romero MD [address] [place] [phone] PCP - General 09/04/22 documented as of this encounter
--- OUTSIDE RECORDS SUMMARY | 2025-08-05 15:24 | XMS_ITS | Encounter Summary ---
Author Organization [facility] Address [address] [facility] [place] [address] Care Team Providers Care Cement Crusher Operator Name Role Phone Pallavi Altman Primary Care Provider +1 -[phone] Eriberto Romero MD Primary Care Provider +1- [phone] Pallavi Altman Primary Care Provider +1 -[phone] Eriberto Romero MD Primary Care Provider +1- [phone] Reason for Visit * Reason Onset Date Comments MEDICATION REFILL 09/01/2021 Encounter Details Date Type Department Care Team (Late st Contact Info) Description 09/01/2021 Refill [facility] [address] [place] [address], [facility] [place] [phone] Sara Russ MD [address] [place] [address] [address] [place] [phone] MEDICATION REFILL Social History Tobacco Use Types [...] of Binge Drinking Not on file 08/24 Sex and Gender Information Value Date Recorded Sex Assigned at Male 09/26/2023 9:38 AM INCOME TAX EXPERT Legal Sex Male 5:17 PM INCOME TAX EXPERT Gender Identity Male 09/26/2023 9:38 AM INCOME TAX EXPERT Sexual Orientation Straight 09/26/2023 9: 38 AM INCOME TAX EXPERT COVID-19 Exposure Response Date Recorded In the last month, have you been in contact with someone who was confirmed or suspected to have Coronavirus / COVID-19? No / Unsure 08/30/2021 9:17 AM INCOME TAX EXPERT documented as of this encounter Functional Status * Is person deaf or have serious hearing difficulty? Answer Date of Assessment Author No 07/13/2021 3:17 PM CDT Arturo Hyde RN * Is person blind or have serious difficulty seeing? Answer Date of Assessment Author No 07/13/2021 3:17 PM CDT Arturo Hyde RN * Does person have serious difficulty walking/climbing stairs? Answer Date of Assessment Author No 07/13/2021 3:17 PM CDT Arturo Hyde RN * Does person have difficulty dressing/bathing? Answer Date of Assessment Author No 07/13/2021 3:17 PM CDT Arturo Hyde RN * Does person have difficulty doing errands alone? Answer Date of Assessment Author No 07/13/2021 3:17 PM CDT Arturo Hyde RN documented as of this encounter Mental Status * Does person have difficulty concentrating/remembering/making decisions? Answer Entry Date Author No 07/13/2021 3:17 PM CDT Arturo Hyde RN documented in this encounter Plan of Treatment Not on file documented as of this encounter Goals Goal Patient Goal Type Associated Problems Recent Progress Patient-Stated? Author Blood Pressure < 140/90 Blood Pressure 114/68( 023 10:04 AM CDT) No Alie Puente RN documented as of this encounter Visit Diagnoses Diagnosis Other seborrheic dermatitis documented in this encounter Care Teams Cement Crusher Operator Relationship Specialty Start Date End Date Pallavi Altman APRN-FLEET DRIVER PCP - General 05/08/19 11/16/21 Eriberto Romero MD [address] [place] [place] [phone] PCP - General 11/17/21 04/30/22 Pallavi Altman APRN-CINDY [address] [place] [phone] PCP - General 05/01/22 09/03/22 Eriberto Romero MD [address] [place] [phone] PCP - General 09/04/22 documented as of this encounter
--- OUTSIDE RECORDS SUMMARY | 2025-08-05 15:24 | XMS_ITS | Encounter Summary ---
Author Organization [facility] Address [address] [place] [address] Care Team Providers Care Research Associate Molecular Biology Name Role Phone Pallavi Altman Primary Care Provider +1 -[phone] Eriberto Romero MD Primary Care Provider +1- [phone] Pallavi Altman Primary Care Provider +1 -[phone] Eriberto Romero MD Primary Care Provider +1- [phone] Reason for Visit * Reason Onset Date Comments MEDICATION REFILL 08/08/2020 Encounter Details Date Type Department Care Team (Late st Contact Info) Description 08/08/2020 Refill [facility] [address] [address] Pallavi Altman APRN-CNP [address] [place] [phone] MEDICATION REFILL Social History Tobacco Use Types Packs/Day Years Used Date Smoking Tobacco: Never Smokeless Tobacco: Never Alcohol Use Standard Drinks/Week Comments No 0 (1 standard drink = 0.6 oz pur e alcohol) Sex and Gender Information Value Date Recorded Sex Assigned at Male 09/26/2023 9:38 AM TATTOO ARTIST Legal Sex Male 5:17 PM TATTOO ARTIST Gender Identity Male 09/26/2023 9:38 AM TATTOO ARTIST Sexual Orientation Straight 09/26/2023 9: 38 AM TATTOO ARTIST COVID-19 Exposure Response Date Recorded In the last month, have you been in contact with someone who was confirmed or suspected to have Coronavirus / COVID-19? No / Unsure 07/28/2020 3:02 PM TATTOO ARTIST documented as of this encounter Miscellaneous Notes * Telephone Encounter - Tri Saenz - 08/09/2020 9:03 AM CST Fish Pinon Requested Prescriptions Pending Prescriptions Disp Refills ??? mupirocin (BACTROBAN) 2 % ointment 22 g 0 Sig: Apply to affected area 3 times daily ??? meloxicam (MOBIC) 7.5 MG tablet 30 tablet 0 Sig: Take 1 tablet by mouth once daily No Known Allergies Last Refill:08/03/2020,04/21/2020 Qty Dispense:22g,30 # of Refills:0,0 Last OV:08/03/2020 Next OV:08/31/2020 OO ARTIST documented in this encounter Plan of Treatment Not on file documented as of this encounter Goals Goal Patient Goal Type Associated Problems Recent Progress Patient-Stated? Author Blood Pressure < 140/90 Blood Pressure 114/68( 023 10:04 AM CDT) No Alie Puente RN documented as of this encounter Visit Diagnoses Diagnosis Skin rash Rash and other nonspecific skin eruption Chronic bilateral low back pain without sciatica documented in this encounter Care Teams Research Associate Molecular Biology Relationship Specialty Start Date End Date Pallavi Altman APRN-CNP PCP - General 05/08/19 11/16/21 Eriberto Romero MD [address] [place] [phone] PCP - General 11/17/21 04/30/22 Pallavi Altman APRN-CNP [address] [place] [address] PCP - General 05/01/22 09/03/22 Eriberto Romero MD [address] [phone] PCP - General 09/04/22 documented as of this encounter
--- OUTSIDE RECORDS SUMMARY | 2025-08-05 15:24 | XMS_ITS | Clinical Summary ---
Author Organization [facility] Address [address] [place] [id number] Care Team Providers Care Brush Painter Name Role Phone Mariana Yepez MD Primary Care Provider [phone] Immunizations Immunization Administration Dates Next Due MODERNA COVID-19 (12+) MRNA, LNP-S, PF, 100 MCG/ 0.5 ML DOSE 11/12/2020,10/15/2020 Social History Tobacco Use Types Packs/Day Years Used Date Smoking Tobacco: Never Assessed Sex and Gender Information Value Date Recorded Sex Assigned at Not on file Legal Sex Male 12:18 PM DISTRIBUTION DISTRICT SUPERVISOR Gender Identity Not on file Sexual Orientation Not on file Plan of Treatment Health Maintenance Due Date Last Done Comments Colorectal Cancer Screening Colonoscopy (10 Years) 1963 Annual Physical 1966 Hepatitis C 1981 Zoster Vaccines (1 of 2) 2013 Pneumococcal Vaccine: 50+ Years (2 of 2 - PCV) 01/25/2017 01/26/2016 COVID-19 Vaccine (3 - 2024-2 6 season) 2025 11/12/2020, 10/15/2020 Influenza Adult (#1) 2025 07/28/2020, 07/05/2019, 07/19/2016 DTaP, Tdap and Td Vaccines ( 2 - Td or Tdap) 05/12/2029 05/12/2019 RSV Immunization or 60+ Years (1 - 1-dose 75+ series) 2038 Hepatitis A Vaccines Aged Out No long er eligible based on patient's age to complete this topic Meningococcal B Vaccine Aged Out No l onger eligible based on patient's age to complete this topic Meningococcal Vaccine Aged Out No sukhjinder zuleyka eligible based on patient's age to complete this topic RSV Immunizations Under 20 Months Aged Out No longer eligible b ased on patient's age to complete this topic [place] Care Teams Brush Painter Relationship Specialty Start Date End Date Mariana Yepez MD [address] [place] [address] PCP - General FAMILY PRACTICE 11/06/23
--- OUTSIDE RECORDS SUMMARY | 2025-08-05 15:25 | XMS_ITS | Encounter Summary ---
Author Organization [facility] Address [address] [place] [address] Care Team Providers Care Recycling Crew Supervisor Name Role Phone Pallavi Altman Primary Care Provider [phone] Eriberto Romero MD Primary Care Provider [phone] Pallavi Altman Primary Care Provider [phone] Eriberto Romero MD Primary Care Provider [phone] Encounter Details Date Type Department Care Team (Late st Contact Info) Description 10/13/2020 Telephone [facility] [address] [facility] [place] [address] Sara Russ MD [address] [place] [address] [address] [place] [address] Social History Tobacco Use Types Packs/Day Years Used Date Smoking Tobacco: Never Smokeless Tobacco: Never Alcohol Use Standard Drinks/Week Comments No 0 (1 standard drink = 0.6 oz pur e alcohol) Sex and Gender Information Value Date Recorded Sex Assigned at Male 09/26/2023 9:38 AM FAST BRIM POUNCER Legal Sex Male 5:17 PM FAST BRIM POUNCER Gender Identity Male 09/26/2023 9:38 AM FAST BRIM POUNCER Sexual Orientation Straight 09/26/2023 9: 38 AM FAST BRIM POUNCER documented as of this encounter Patient Instructions * Patient Instructions* Reta Edmond - 10/13/2020 1:01 PM FAST BRIM POUNCER Patient called wanting to schedule an appointment. There is a referral from Pallavi Altman CNP in [facility]. stated that he has left several messages and has not heard back from the office. He can be reached at [phone]. BRIM POUNCER documented in this encounter Plan of Treatment Not on file documented as of this encounter Goals Goal Patient Goal Type Associated Problems Recent Progress Patient-Stated? Author Blood Pressure < 140/90 Blood Pressure 114/68( 023 10:04 AM CDT) No Alie Puente RN documented as of this encounter Visit Diagnoses Not on filedocumented in this encounter Care Teams Recycling Crew Supervisor Relationship Specialty Start Date End Date Pallavi Altman APRN-CNP PCP - General 05/08/19 11/16/21 Eriberto Romero MD [address] [place] [address] PCP - General 11/17/21 04/30/22 Pallavi Altman APRN-CNP [address] [place] [address] PCP - General 05/01/22 09/03/22 Eriberto Romero MD [address] [place] [address] PCP - General 09/04/22 documented as of this encounter
--- OUTSIDE RECORDS SUMMARY | 2025-08-05 15:25 | XMS_ITS | Encounter Summary ---
Author Organization [facility] Address [address] [facility] [place] [address] Care Team Providers Care Swiss Machinist Name Role Phone Eriberto Romero MD Primary Care Provider [phone] Reason for Referral * Medication Prior Authorization - Closed Specialty Diagnoses / Procedures Referred By Cheri hennessy Referred To Contact Eriberto Romero MD [address] [place] [phone] Phone: tel: fax: Referral ID Status Reason Start Date Expiration Date Visits Re quested Visits Authorized [id number] Closed 1 1 ICE CONTROL OPERATOR * Medication Prior Authorization - Closed Specialty Diagnoses / Procedures Referred By Cheri hennessy Referred To Contact Eriberto Romero MD [address] [place] [phone] Phone: tel: fax: Referral ID Status Reason Start Date Expiration Date Visits Re quested Visits Authorized [id number] Closed 1 1 ICE CONTROL OPERATOR Reason for Visit * Reason Onset Date Comments MEDICATION REFILL 10/01/2023 Encounter Details Date Type Department Care Team (Late st Contact Info) Description 10/01/2023 Refill [facility] [address] [place] [address], [place] [id number] Eriberto Romero MD [address] [place] [id number] MEDICATION REFILL Social History Tobacco Use Types [...] on file 08/24 PHQ-2 Answer Date Recorded PHQ2 TOTAL SCORE 0 07/26/2022 Sex and Gender Information Value Date Recorded Sex Assigned at Male 09/26/2023 9:38 AM SERVICE CONTROL OPERATOR Legal Sex Male 5:17 PM SERVICE CONTROL OPERATOR Gender Identity Male 09/26/2023 9:38 AM SERVICE CONTROL OPERATOR Sexual Orientation Straight 09/26/2023 9: 38 AM SERVICE CONTROL OPERATOR Occupation Industry Job Start Date Job End Date Country [employer] Not on file Not on file Not on file documented as of this encounter Functional Status * Is person deaf or have serious hearing difficulty? Answer Date of Assessment Author No 09/05/2021 6:30 AM Beatriz Ayon RN * Is person blind or have serious difficulty seeing? Answer Date of Assessment Author No 09/05/2021 6:30 AM Beatriz Ayon RN * Does person have serious difficulty walking/climbing stairs? Answer Date of Assessment Author No 09/05/2021 6:30 AM Beatriz Ayon RN * Does person have difficulty dressing/bathing? Answer Date of Assessment Author No 09/05/2021 6:30 AM Beatriz Ayon RN * Does person have difficulty doing errands alone? Answer Date of Assessment Author No 09/05/2021 6:30 AM Beatriz Ayon RN documented as of this encounter Mental Status * Does person have difficulty concentrating/remembering/making decisions? Answer Entry Date Author No 09/05/2021 6:30 AM Beatriz Ayon RN documented in this encounter Miscellaneous Notes * Telephone Encounter - Tri Saenz - 10/05/2023 1:49 PM CST Fish Pinon Requested Prescriptions Pending Prescriptions Disp Refills ??? lisinopril-hydroCHLOROthiazide (Prinzide; Zestoretic) 20-25 MG tablet 90 tablet PRN Sig: Take 1 (one) tablet by mouth once daily ??? albuterol HFA (Proventil; Ventolin; Proair) 108 (90 Base) MCG/ACT inhaler 18 g 5 Sig: Inhale 2 (two) puffs by mouth once daily ??? Azelastine HCl 137 MCG/SPRAY SOLN 90 mL 3 Sig: Warren 1 spray into the nose 2 times daily ??? dulaglutide (Trulicity) 0.75 MG/0.5ML injection 6 mL 3 Sig: Inject 0.5 mL subcutaneously every 7 days ??? DULoxetine (Cymbalta) 60 MG capsule 90 capsule 3 Sig: Take 1 (one) capsule by mouth once daily ??? fexofenadine (Jia) 180 MG tablet 90 tablet 3 Sig: Take 1 (one) tablet by mouth once daily ??? hydrocortisone (Hytone) 2.5 % cream 20 g 3 Sig: Apply to affected area 2 times daily as needed ??? ketoconazole (Nizoral) 2 % shampoo 120 mL 5 Sig: Apply to face and scalp in shower TIW. Leave on for 3-5 minutes prior to washing off. ??? mupirocin (Bactroban) 2 % ointment 22 g 0 Sig: Apply to affected area 3 times daily ??? budesonide-formoterol (Symbicort) 80-4.5 MCG/ACT inhaler 10.2 g 3 Sig: Take 2 (two) puffs by mouth 2 times daily ??? triamcinolone acetonide (Kenalog) 0.1 % cream 60 g 3 Sig: APPLY TO BACK AND CHEST TWICE DAILY ??? triamcinolone (Nasacort Aq) 55 MCG/ACT nasal inhaler 50.7 mL 4 Sig: Warren 2 (two) sprays into each nostril once daily ??? traZODone (Desyrel) 150 MG tablet 90 tablet 3 Sig: Take 1 (one) tablet by mouth at bedtime ??? omeprazole (PriLOSEC) 20 MG capsule 90 capsule 3 Sig: Take 1 (one) capsule by mouth daily before breakfast ??? pimecrolimus (Elidel) 1 % cream 100 g 5 Sig: Apply to 2 times daily. 30 days supply. Reasons: Atopic Dermatitis, Rosacea, Worsening rosaceawith hydrocortisone ??? OXcarbazepine (Trileptal) 600 MG tablet 180 tablet 3 Sig: Take 1 (one) tablet by mouth 2 times daily ??? vitamin D, ergocalciferol, (Drisdol) 1.25 MG (38977 UT) capsule 4 capsule 5 Sig: Take 1 (one) capsule by mouth every 7 days ??? montelukast (Singulair) 10 MG tablet 90 tablet 4 Sig: Take 1 (one) tablet by mouth once daily ??? tadalafil (Cialis) 20 MG tablet 10 tablet 5 Sig: Take 1 (one) tablet by mouth once daily as needed (before sex for a better erection) ??? gabapentin (Neurontin) 300 MG capsule 180 capsule 3 Sig: TAKE 2 CAPSULES 3 TIMES A DAY FOR NEUROPATHIC PAIN REASONS: DISEASE OF THE PERIPHERAL NERVES ??? rosuvastatin (Crestor) 40 MG tablet 90 tablet 1 Sig: Take 1 (one) tablet by mouth once daily No Known Allergies Last Refill:03/20/2023 Qty Dispense: # of Refills: Last OV:03/20/2023 Next OV:none ICE CONTROL OPERATOR documented in this encounter Plan of Treatment Not on file documented as of this encounter Goals Goal Patient Goal Type Associated Problems Recent Progress Patient-Stated? Author Blood Pressure < 140/90 Blood Pressure 114/68( 023 10:04 AM CDT) No Alie Puente RN documented as of this encounter Visit Diagnoses Diagnosis Essential (primary) hypertension Unspecified essential hypertension Type 2 diabetes mellitus without complication, without long-term current use of insulin (HCC) Musculoskeletal pain Mylagia and myositis, unspecified Other seborrheic dermatitis Insomnia, unspecified type Erythematous gastropathy Unspecified gastritis and gastroduodenitis without mention of hemorrhage Medication refill Issue of repeat prescriptions Hypogonadism in male Restless legs syndrome (RLS) Type 2 diabetes mellitus with complications (HCC) Type II or unspecified type diabetes mellitus with unspecified complication, not stated as uncontrolled documented in this encounter Care Teams Swiss Machinist Relationship Specialty Start Date End Date Eriberto Romero MD [address] [address] PCP - General 09/04/22 documented as of this encounter
--- OUTSIDE RECORDS SUMMARY | 2025-08-05 15:25 | XMS_ITS | Encounter Summary ---
Author Organization [facility] Address [address] [facility] [place] [address] Care Team Providers Care Film Sound Engineer Name Role Phone Eriberto Romero MD Primary Care Provider [phone]- [phone] Pallavi Altman Primary Care Provider [phone] Eriberto Romero MD Primary Care Provider [phone]- [phone] Reason for Visit * Reason Onset Date Comments MEDICATION REFILL 11/22/2021 Encounter Details Date Type Department Care Team (Late st Contact Info) Description 11/22/2021 Refill [facility] [address] [address] Pallavi Altman APRN-CNP [address] [phone] MEDICATION REFILL Social History Tobacco Use Types [...] Sex Assigned at Male 09/26/2023 9:38 AM TECHNICAL SERVICES ANALYST Legal Sex Male 5:17 PM TECHNICAL SERVICES ANALYST Gender Identity Male 09/26/2023 9:38 AM TECHNICAL SERVICES ANALYST Sexual Orientation Straight 09/26/2023 9: 38 AM TECHNICAL SERVICES ANALYST COVID-19 Exposure Response Date Recorded In the last month, have you been in contact with someone who was confirmed or suspected to have Coronavirus / COVID-19? No / Unsure 11/24/2021 6:55 AM TECHNICAL SERVICES ANALYST documented as of this encounter Functional Status * Is person deaf or have serious hearing difficulty? Answer Date of Assessment Author No 09/05/2021 6:30 AM Beatriz Ayon RN * Is person blind or have serious difficulty seeing? Answer Date of Assessment Author No 09/05/2021 6:30 AM TECHNICAL SERVICES ANALYST Beatriz Salcedo RN * Does person have serious difficulty [...] Beatriz Ayon RN documented in this encounter Plan of Treatment Not on file documented as of this encounter Goals Goal Patient Goal Type Associated Problems Recent Progress Patient-Stated? Author Blood Pressure < 140/90 Blood Pressure 114/68( 023 10:04 AM CDT) No Alie Puente RN documented as of this encounter Visit Diagnoses Diagnosis Type 2 diabetes mellitus with other circulatory complication, with long-term current use of insulin (HCC) documented in this encounter Care Teams Film Sound Engineer Relationship Specialty Start Date End Date Eriberto Romero MD [address] [address] PCP - General 11/17/21 04/30/22 Pallavi Altman APRN-GUN PROFILER [address] [facility] [address] [place] [address] PCP - General 05/01/22 09/03/22 Eriberto Romero MD [address] [facility] [address] [place] [address] PCP - General 09/04/22 documented as of this encounter
--- OUTSIDE RECORDS SUMMARY | 2025-08-05 15:25 | XMS_ITS | Data Portability ---
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 Pt denies having any fevers, chills, SOB, chest pain, N/V, or abdominal pain. Not available 01/11/2024 13:12:13 07/18/2024 07/18/2024 58 yo M with pmhx of T2DM, HLD, obesity, spinal stenosis w/ degenerative disc disease, Surgical for V3,4,5 replacement, presents to the office for routine follow up and medication refills.Pt denies having any fevers, chills, SOB, chest pain, N/V, or abdominal pain. Not available 07/18/2024 17:14:19 02/20/2025 02/20/2025 58 yo M with pmhx of T2DM, HLD, obesity, spinal stenosis w/ degenerative disc disease, Surgical for V3,4,5 replacement, presents to the office for DM follow up and medication refills. Not available 01/27/2025 11:13:43 07/01/2025 07/01/2025 58 yo M with pmhx of T2DM, HLD, obesity, spinal stenosis w/ degenerative disc disease, Surgical for V3,4,5 replacement, presents to the office for DM follow up and medication refills. [place] Not available 07/01/2025 12:47:10 Plan of Treatment Reminders Order Date Submit Date Provider Last Modified By Organization Details Last Modified Time Details Appointments [facility] 2024 12:00P M Antonio Holdenmartita, DO Not available Not available Not available Lab HbA1 c (hem oglo bin A1c) , bloo d 2024 025 [place] [facility] In-Office Order, Internal Use Only DO Not Attach Compendium DO Not Attach Compendium, Do Not Delete/merge, 02/20/2025 10:49:37 gluc ose, fing erst ick, bloo d 2024 025 [place] [facility] In-Office Order, Internal Use Only DO Not Attach Compendium DO Not Attach Compendium, Do Not Delete/merge, 02/20/2025 10:49:37 lipi estefanía babcock 2024 025 [facility], [address], [address], [place], [address], 02/21/2025 02:08:42 HbA1 c (hem oglo bin A1c) , bloo d 2023 024 [facility] [facility], [address], [address], [place], [address], 10/15/2024 14:42:02 HbA1 c (hem oglo bin A1c) , bloo d 2023 024 [facility], [address], [address], [place], [address], 02/27/2024 07:15:25 ez min D, 25-h yjewel bianchi seru m 2023 024 [facility], [address], [address], [place], [address], 02/27/2024 07:15:26 ana rosa nvas manjeet colo rect al canc er DNA + occu lt bloo d scre enin g, QL, stoo l 2023 024 CARNE[facility], [address], [address], [place], [address], 02/09/2024 00:46:50 Referral slee p medi cine refe rral [address] [facility], [address] [facility] , [address], [place], [address], 08/04/2025 15:55:51 otol elena golo gist refe rral 2024 025 [facility], [address] [place] [address] , [address], [place], [address], 07/15/2025 12:41:44 slee p medi cine refe rral [address] [facility], [address] [facility] , [address], [place], [address], 04/29/2025 01:35:07 diab etic opht halm olog y refe rral 2023 024 [facility], [address] [place], [address], 09/25/2024 08:28:[address] refe rral - diab etic foot exam 2023 024 [facility], [address], [place], [address], 03/04/2024 10:21:[address] refe 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 2023 024 [place] [facility], [address] [facility] [address], [address], [place], [address], 06/09/2024 16:51:06 derm atol ogis t refe rral - Hx of mult iple mole s that almendarez ge colo r, all thro ugho ut. 2023 024 [facility], [address] [place] [address], [place], [address], 10/27/2024 14:10:01 Procedures None ceci rded . Surgeries None ceci rded . Imaging None ceci rded . Medication Orders pred niso ne 20 mg tabl et 2024 025 [facility] [address] [place], [address], 07/13/2025 05:01:54 Trul icit y 0.75 mg/0 .5 mL subc utan eous pen inje ctor 2024 025 [facility], [address] [place], [address], 03/06/2025 03:02:14 metf ormi n ER 500 mg tabl et,e xten ded rele ase 24 hr 2024 025 [facility], [address] [place], [address], 02/20/2025 10:49:45 omep lara le 20 mg caps ule elliott yed rele ase 2024 025 [facility], [address] [place], [address], 03/06/2025 03:02:14 raman nopr il 20 mg-h ydro chlo ang iazi de 25 mg tabl et 2024 025 [facility] #6830, [address] [place], [address], 02/21/2025 03:02:27 ator vast atin 40 mg tabl et 2024 025 [facility] [address] [place], [address], 02/20/2025 10:49:45 traz odon e 100 mg tabl et 2024 025 [facility] [address] [place], [address], 02/20/2025 10:49:44 traz odon e 150 mg tabl et 2024 025 [facility]68[facility], [address] [place], [address], 02/20/2025 10:49:45 Trul icit y 0.75 mg/0 .5 mL subc utan eous pen inje ctor 2023 024 [facility]68[facility], [address] [place], [address], 07/18/2024 17:14:35 metf ormi n 500 mg tabl et 2023 024 [facility]68[facility], [address] [place], [address], 07/18/2024 17:14:35 white xica m 15 mg tabl et 2023 024 [facility]6830, [address] [place], [address], 07/18/2024 17:14:34 omep lara le 20 mg caps ule, elliott yed rele ase 2023 [facility], [address] [place], [address], 08/13/2024 14:59:55 rosu vast atin 40 mg tabl et 2023 [facility]6830, [address] [place], [address], 07/18/2024 17:14:34 traz odon e 100 mg tabl et 2023 [facility] [address] [place], [address], 07/18/2024 17:14:33 traz odon e 150 mg tabl et 2023 [facility] #6830, [address] [place], [address], 07/18/2024 17:14:34 raman nopr il 20 mg-h ydro chlo ang iazi de 25 mg tabl et 2023 [facility] #6830, [address] [place], [address], 07/18/2024 17:14:33 Trul icit y 0.75 mg/0 .5 mL subc utan eous pen inje ctor [address]23 [address] [facility] [address] [address] [place], [address], 01/18/2024 13:34:22 metf ormi n 500 mg tabl et 2023 024 [address] [address] [place], [address], 01/18/2024 13:34:22 white xica m 15 mg tabl et [address]/Pharmacy #6830, [address] [place], [address], 01/18/2024 13:34:22 omep lara le 20 mg caps ule, elliott yed rele ase [address]/Pharmacy #6830, [address] [place], [address], 01/18/2024 13:34:22 rosu vast atin 40 mg tabl et [address]/Pharmacy #6830, [address] [place], [address], 01/18/2024 13:34:22 traz odon e 100 mg tabl et [address] [facility] [address] [facility] [address] [place], [address], 03/31/2024 14:30:05 traz odon e 150 mg tabl et [address] [facility], [address] [place], [address], 01/15/2024 21:13:55 ergo calc ifer ol (vit gonzalez D2) 1,25 0 mcg (50, 000 unit ) caps ule [address]/Pharmacy #6830, [address] [place], [address], 01/18/2024 13:34:22 raman nopr il 20 mg-h ydro chlo ang iazi de 25 mg tabl et [address]/Pharmacy #6830, [address] [place], [address], 01/18/2024 13:34:22 Patient TargetsNo targets recorded. Patient Instructions Encounter Date Encounter Id Patient Instructions Last Modified By Organization Details Last Modified Time 01/11/2024 [id number] neck arthritis: exercises Not available 01/11/2024 13:12:04 gastroesophageal reflux disease (GERD): care instructions Not available 01/11/2024 13:12:05 A healthy lifestyle: care instructions Not available 01/11/2024 13:12:04 I was present an d available in the family medicine clinic to discuss the patient's care during the appointment and the case was discussed with me. Mr. Pinon requested increase in trazadone 250 mg HS dose 2/2 ineffective for sleep. As it has been prescribed chronically by his sleep medicine specialist and is apparently not effective, it was recommended dose change or refill of the med (when due later in January) come from his specialist. HLF hlucasfoster Not available 01/15/2024 21:18:50 07/18/2024 [id number] neck arthritis: exercises Not available 07/18/2024 17:14:27 A healthy lifestyle: care instructions Not available 07/18/2024 17:14:27 On the date of t his encounter, I was available to assist the resident in the care of the patient, and have reviewed and agree with the resident s findings and plan of care.---DONAVAN [email or web address] Not available 07/21/2024 10:36:22 02/20/2025 [id number] neck arthritis: exercises Not available 02/20/2025 10:49:37 A healthy lifestyle: care instructions Not available 02/20/2025 10:49:37 I was present an d available in the Family Medicine clinic to discuss this patient's care for the duration of the appointment. I agree with the resident's assessment and plan as documented with the following addendum: None. Dr. Kush Marinelli MD, FMOB Attending Physician, [facility]. [email or web address] Not available 02/26/2025 14:43:16 07/01/2025 [id number] neck arthritis: exercises Not available 07/01/2025 12:50:23 A healthy lifestyle: care instructions Not available 07/01/2025 12:50:23 I was present an d available in the Family Medicine clinic to discuss the patient's care during the time of the appointment. All labs/imaging/consul ts/prescriptions to be followed by the resident rendering services on day of encounter. I agree with the resident's assessment and plan as documented with the following addendum: None. 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 Referring Physician: General Leonarda Phelan, Encounter Date: 01/11/2024 Sleep Medicine Referral for Chronic insomnia chronic insomnia, managed with trazodone. 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 Referral for Type 2 diabetes mellitus diabetic foot exam Referring Physician: General Leonarda Phelan, Encounter Date: 01/11/2024 Sleep Medicine Referral for Chronic insomnia Referring Physician: General Leonarda Phelan, Encounter Date: 02/20/2025 Admitting Counselor Referral fo r Chronic maxillary sinusitis Referring Physician: General Leonarda Phelan, Encounter Date: 07/01/2025 Sleep Medicine Referral for Obstructive sleep apnea syndrome Referring Physician: General Leonarda Phelan, Encounter Date: 07/01/2025 Results Created Date Observation Date Name Description Value Unit Range Abnormal Flag Note LastModifiedBy Organization Detail LastModifiedTime 02/03/20 24 02/03/2024 COLOG UARD cologuard result reportable Negati ve negati ve normal NEGAT MANJEET TEST RESUL T. A negat manjeet Colog uard resul t indic ates a low likel ihood that a color ectal cance r (CRC) or advan papito adeno ma (bruna omato us polyp s with more advan papito pre-m align ant featu res) is prese nt. The chanc e that a perso n with a negat manjeet Colog uard test has a color ectal cance r is less than 1 in 1500 (nega tive predi ctive value >99.9 %) or has an advan papito adeno ma is less than 5.3% (nega tive predi ctive value 94.7% ). These data are based on a prosp ectiv e cross -sect ional study of ,00 0 indiv idual s at [place]ualatin ge risk for color ectal cance r who were scree latha with both Colog uard and colon oscop y. (Myles Sanchez et al, N Engl J Med 2014; 370(1 4):12 86-12 97) The eulalio l value (refe rence range ) for this assay is negat manjeet. COLOG UARD RE-SC REEMARCO NG RECOM MENDA TION: Perio dic color ectal cance r scree vesna is an impor tant part of preve ntive healt hcare for asymp tomat ic indiv idual s at tualatin ge risk for color ectal cance r. Follo wing a negat manjeet Colog uard resul t, the Ameri can Cance r Socie ty and U.S. Multi -Soci ety Task Force scree vesna guide lines recom mend a Colog uard re-sc reeni ng inter anand of 3 years . Refer ences : Ameri can Cance r Socie ty Guide line for Color ectal Cance r Scree vesna: https ://lauren w.can cer.o rg/ca ncer/ colon -rect al-ca ncer/ detec tion- diagn osis- stagi ng/ac s-rec ommen datio ns.paul ml.; Ga DING, Linus OTERO, Domin olena JK, Color ectal Cance r Scree vesna: Recom menda tions for Physi cians and Patie nts from the U.S. Multi -Soci ety Task Force on Color ectal Cance r Scree vesnaHerrera hines y 2017; 112:1 016-1 030. TEST DESCR IPTIO N: [place] site algor ithmi c laura sis of stool DNA-b iomar kers with hemog lobin immun oassa y. Quant itati ve value s of indiv idual bioma rkers are not repor table and are not assoc iated with indiv idual bioma rker resul t refer ence range s. Colog uard is inten ded for color ectal cance r scree vesna of adult s of eithe r sex, 45 years or older , who are at [facility] for color ectal cance r (CRC) . Colog uard has been appro kathy for use by the U.S. FDA. The perfo rmanc e of Colog uard was estab lishe d in a cross secti onal study of [facility] adult s aged 50-84 . Colog uard perfo rmanc e in patie nts ages 45 to 49 years was estim ated by [place]-g berenicep laura sis of near- age group s. Colon oscop ies perfo rmed for a posit manjeet resul t may find as the most clini jessa signi ficdonna t lesio n: color ectal cance r [4.0% ], advan papito adeno ma (incl uding sessi le jose hayley polyp s great er than or equal to 1cm diame ter) [20%] or non- advan papito adeno ma [31%] ; or no color ectal neopl en [45%] . These estim ates are deriv ed from a prosp ectiv e cross -sect ional scree vesna study of 10,00 0 indiv idual s at [facility] risk for color ectal cance r who were scree latha with both Colog uard and colon oscop y. (Myles Sanchez et al, N Engl J Med 2014; 370(1 4):12 86-12 97.) Colog uard may produ ce a false negat manjeet or false posit manjeet resul t (no color ectal cance r or preca ncero us polyp prese nt at colon oscop y follo w up). A negat manjeet Colog uard test resul t does not guara ntee the absen ce of CRC or advan papito adeno ma (pre- cance r). The curre nt Colog uard scree vesna inter anand is every 3 years . (Amer ican Cance r Socie ty and U.S. Multi -Soci ety Task Force ). Colog uard perfo rmanc e data in a 10,00 0 patie nt pivot al study using colon oscop y as the refer ence metho d can be acces sed at the follo wing locat ion: www.e xactl abs.c om/re toño . Addit ional descr iptio n of the Colog uard test proce ss, warni ngs and preca ution s can be found at www.c ologu sulema.c om. Not Available [facility] [address], [place], [address], 02/09/2024 00:46:50 02/26/20 24 02/27/2024 HEMOG LOBIN A1C hemoglobin A1C 6.2 % 4.8-5. 6 above high normal Predi abete s: 5.7 - 6.4 Diabe ailyn: >6.4 Glyce jaswinder contr ol for adult s with diabe ailyn: <7.0 Not Available [facility] [address] [facility], [place], [address], 02/27/2024 07:15:25 02/26/2002/27/2024 VITAM IN D, 25-HY DROXY vitamin D, 25-hydroxy 39.4 NG/mL 30.0-1 00.0 Vitam in D defic iency has been defin ed by the Insti tute of Medic ine and an [facility] ty pract ice guide line as a level of serum 25-OH vitam in D less than 20 ng/mL (1,2) . The Endoc rine Socie ty went on to furth er defin e vitam in D insuf ficie ncy as a level betwe en 21 and 29 ng/mL (2). 1. IOM (Inst itute of Medic ine). 2010. Dieta ry refer ence intak es for calci um and D. Zain jimenez [place]: The [facility] . 2. Gregory burr MF, Lamonte ey [place], Delilah off-F errar i RIOS, et al. Evalu ation , treat ment, and preve ntion of vitam in D defic iency : an Endoc rine Socie ty clini margot pract ice guide line. JCEM. 2010; 96(7) :1911 -30. Not Available [facility] [address] [place], [address], 02/27/2024 07:15:26 02/26/20 24 03/02/2024 THYRO ID STIMU LATIN G HORMO NE TSH-icma 1.6 uu/mL Refer ence Range : Non-P regna nt Adult 0.450 -4.50 0 Not Available [facility] [address] [facility], [place], [address], 03/02/2024 18:10:23 02/21/20 25 02/21/2025 LIPID PANEL cholesterol, total 165 mg/dL 100-19 9 Not Available [facility] [address] [place], [address], 02/21/2025 02:08:42 02/21/20 25 02/21/2025 LIPID PANEL triglyceride s 106 mg/dL 0-149 Not Available [facility] [address] [place], [address], 02/21/2025 02:08:42 02/21/20 25 02/21/2025 LIPID PANEL HDL cholesterol 55 mg/dL >39 Not Available [facility] [address] [place], [address], 02/21/2025 02:08:42 02/21/20 25 02/21/2025 LIPID PANEL VLDL cholesterol margot 19 mg/dL 5-40 Not Available [facility] [address] [facility], [place], [address], 02/21/2025 02:08:42 02/21/20 25 02/21/2025 LIPID PANEL LDL chol calc ([facility]) 91 mg/dL 0-99 Not Available [facility] [address] [facility], [place], [address], 02/21/2025 02:08:42 02/21/2002/20/2025 gluco se, finge rstic k, blood Blood Glucose: mg/dl 101 Not Available In-Off ice Order Internal Use Only DO Not Attach Compendium DO Not Attach Compendium, Do Not Delete/merge, [id number] 02/20/2025 10:41:45 02/21/20 25 02/20/2025 HbA1c (hemo globi n A1c), blood HbA1c 6.2 Not Available In-Office Order Internal Use Only DO Not Attach Compendium DO Not Attach Compendium, Do Not Delete/merge, 02/20/2025 10:41:44 04/30/20 25 05/01/2025 HEMOG LOBIN A1C hemoglobin A1C 6.1 % 4.8-5. 6 above high normal Predi abete s: 5.7 - 6.4 Diabe ailyn: >6.4 Glyce jaswinder contr ol for adult s with diabe ailyn: <7.0 Not Available [facility] [address] [facility], [place], [address], 05/01/2025 06:17:11 04/30/2005/01/2025 PROST ATE-S PECIF IC AG prostate specific Ag 3.1 NG/mL 0.0-4. 0 Vivian ECLIA metho dolog y. Accor ding to the Ameri can Urolo gical Assoc iatio n, Serum PSA shoul d decre ase and remai n at undet ectab le level s after radic al prost atect moises. The AUA defin es bioch emica l recur rence as an initi al PSA value 0.2 ng/mL or great er follo wed by a subse quent confi rmato ry PSA value 0.2 ng/mL or great er. Value s obtai latha with diffe rent assay metho ds or kits canno t be used inter chacon eably . Resul ts canno t be inter prete d as absol ann evide nce of the prese nce or absen ce of gary knutson se. Not Available [facility] [address] [facility], [place], [address], 05/01/2025 13:11:23 Result Notes None recorded. Problems Name Problem SNOMED Code Status Onset Date Resolution Date Notes Provider Name and Address Organization Details Recorded Time Multiple benign melanocytic nevi 437666946 Active 2023 Narciso Yepez MD Attn: Gudelia hines,[address] [place], [place], [address] [place] [address] 2, [facility] - [facility] 4 12:41:12 Chronic insomnia 175229755 Active 2023 Narciso Yepez MD Attn: Gudelia hines,[address] [place], [place], [address] [place] [address] 2, [facility] - [facility] 4 12:41:15 Essential hypertension 02647043 Active 2023 Narciso Yepez MD Attn: Gudelia hines,[address] [place], [place], [address] [place] [address] 2, [place] - [place] 4 12:45:35 Vitamin D deficiency 31322608 Active 2023 Narciso Yepez MD Attn: Gudelia hines,[address] [place], [place], [address] [place] [address] 2, [facility] - [facility] 4 12:49:54 Degeneration of cervical intervertebral disc 70966884 Active 2024 Adelaida lindsey RN null, [place] - [facility] 5 11:57:07 Degeneration of intervertebral disc 45578631 Active 2024 Adelaida Alvaradoto n, RN null, [place] 11:57:13 Type 2 diabetes mellitus 20180130 Active 2024 Adelaida Washingto n, RN null, [place] 11:57:30 Hyperlipidemia 26416190 Active 2024 Adelaida Washingto n, RN null, [place] 11:57:45 Obesity 805103619 Active 2024 Adelaida Washingto n, RN null, [place] 11:57:50 Gastroesophage al reflux disease 205362551 Active 2024 Adelaida Alvaradoto n, RN null, [place] - [facility] 11:58:18 Mixed anxiety and depressive disorder 234093526 Active 2024 Adelaida Washingto n, RN null, [place] [facility] 11:59:44 Intermittent explosive outburst 42435114 Active 2024 Adelaida Alvaradoto n, RN null, [place] [facility] 11:59:52 Problem Notes None recorded. Procedures Surgical History Date Name Laterality Status Provider Name and Address Organization Details Recorded Time Diabetic Foot Exam completed Narciso Yepez MD Attn: Accounting,[address] [place], [address], [facility] - [facility] 02/20/2025 10:50:15 Imaging Results None recorded. Procedure Notes None recorded. Medical Equipment None Reported. Allergies No known drug allergies Medications Name Sig Start Date Stop Date Status Note LastModified by Organization Details LastModified Time cyclobenzap rine 10 mg tablet TAKE 1 TABLET (ORAL) 3 TIMES PER DAY NEEDED FOR 7 DAYS active Not Available Not Available No t Available atorvastati n 40 mg tablet TAKE 1 TABLET BY MOUTH EVERY DAY active Not Available Not Available No t Available metformin 500 mg tablet TAKE 1 TABLET BY MOUTH EVERY DAY active Not Available Not Available No t Available oxcarbazepi ne 150 mg tablet 01/10 completed Not Available Not Available Not Available doxycycline hyclate 100 mg capsule TAKE 1 CAPSULE BY MOUTH TWICE A DAY FOR 10 DAYS 04/03 completed Not Available Not Available Not Available atorvastati n 20 mg tablet 04/03 completed Not Available Not Available Not Available ketoconazol e 2 % shampoo APPLY TO FACE AND SCALP IN SHOWER TIW. LEAVE ON FOR 3-5 MINUTES PRIOR TO WASHING OFF. active Not Available Not Available No t Available lisinopril 20 mg-hydrochl orothiazide 12.5 mg tablet 01/10 completed Not Available Not Available Not Available azithromyci n 250 mg tablet TAKE 2 TABLETS BY MOUTH TODAY, THEN TAKE 1 TABLET DAILY FOR 4 DAYS DIRECTED 01/10 completed Not Available Not Available Not Available ibuprofen 800 mg tablet TAKE 1 TABLET BY MOUTH EVERY 12 HOURS active Not Available Not Available No t Available meloxicam 15 mg tablet TAKE 1 TABLET BY MOUTH EVERY DAY 2024 active Not Available Not Available Not Avai lable prednisone 20 mg tablet Take 1 tablet every day by oral route for 5 days. 07/13 completed Not Available Not Available Not Available pimecrolimu s 1 % topical cream PLEASE SEE ATTACHED FOR DETAILED DIRECTION S 01/10 completed Not Available Not Available Not Available fexofenadin e 180 mg tablet TAKE 1 TABLET BY MOUTH EVERY DAY active Not Available Not Available No t Available triamcinolo ne acetonide 0.1 % topical cream APPLY TO BACK AND CHEST TWICE DAILY active Not Available Not Available No t Available amoxicillin 500 mg tablet TAKE 1 TABLET BY MOUTH EVERY 8 HOURS FOR 10 DAYS 02/20 completed Not Available Not Available Not Available prednisone 10 mg tablets in a dose pack TAKE DIRECTED 04/03 completed Not Available Not Available Not Available meloxicam 7.5 mg tablet Take 1 tablet every day by oral route. 01/10 completed Not Available Not Available Not Available lorazepam 0.5 mg tablet 04/03 completed Not Available Not Available Not Available trazodone 100 mg tablet TAKE 1 TABLET BY MOUTH EVERYDAY AT BEDTIME active Not Available Not Available No t Available benzonatate 100 mg capsule TAKE 1 CAPSULE BY MOUTH THREE TIMES A DAY FOR 10 DAYS 04/03 completed Not Available Not Available Not Available flunisolide 25 mcg (0.025 %) nasal spray 04/03 completed Not Available Not Available Not Available pantoprazol e 40 mg tablet,elliott yed release TAKE 1 TABLET BY MOUTH DAILY BEFORE BREAKFAST active Not Available Not Available No t Available trazodone 150 mg tablet TAKE 1 TABLET BY MOUTH EVERYDAY AT BEDTIME active Not Available Not Available No t Available metformin 1,000 mg tablet 04/03 completed Not Available Not Available Not Available triamcinolo ne acetonide 55 mcg nasal spray aerosol SPRAY 2 SPRAYS INTO EACH NOSTRIL EVERY DAY active Not Available Not Available No t Available trazodone 300 mg tablet TAKE 1 TABLET BY MOUTH EVERYDAY AT BEDTIME active Not Available Not Available No t Available gabapentin 300 mg capsule TAKE 2 CAPSULES BY MOUTH 3 TIMES A DAY FOR NEUROPATH IC PAIN 2024 active Not Available Not Available Not Avai lable omeprazole 20 mg capsule,del ayed release TAKE 1 CAPSULE BY MOUTH TWICE A DAY active Not Available Not Available No t Available lisinopril 20 mg-hydrochl orothiazide 25 mg tablet TAKE 1 TABLET BY MOUTH EVERY DAY active Not Available Not Available No t Available oxcarbazepi ne 600 mg tablet TAKE 1 TABLET BY MOUTH TWICE A DAY active Not Available Not Available No t Available hydrocortis one 2.5 % topical cream APPLY TO AFFECTED AREA 2 TIMES DAILY NEEDED active Not Available Not Available No t Available montelukast 10 mg tablet TAKE 1 TABLET BY MOUTH EVERY DAY active Not Available Not Available No t Available hydroxyzine HCl 25 mg tablet 04/03 completed Not Available Not Available Not Available mupirocin 2 % topical ointment APPLY TO AFFECTED AREA 3 TIMES A DAY 04/03 completed Not Available Not Available Not Available diclofenac sodium 50 mg tablet,elliott yed release TAKE 1 TABLET BY MOUTH EVERY 12 HOURS FOR 5 DAYS active Not Available Not Available No t Available furosemide 20 mg tablet 01/10 completed Not Available Not Available Not Available ergocalcife rol (vitamin D2) 1,250 mcg (50,000 unit) capsule TAKE 1 CAPSULE EVERY WEEK BY ORAL ROUTE. active Not Available Not Available No t Available azelastine 137 mcg (0.1 %) nasal spray SPRAY 1 SPRAY INTO THE NOSE 2 TIMES DAILY active Not Available Not Available No t Available lisinopril 10 mg-hydrochl orothiazide 12.5 mg tablet 01/10 completed Not Available Not Available Not Available albuterol sulfate HFA 90 mcg/actuati on aerosol inhaler INHALE 2 (TWO) PUFFS BY MOUTH ONCE DAILY active Not Available Not Available No t Available fluticasone propionate 50 mcg/actuati on nasal spray,suspe nsion 04/03 completed Not Available Not Available Not Available metformin ER 500 mg tablet,exte nded release 24 hr TAKE 2 TABLETS BY MOUTH EVERY DAY active Not Available Not Available No t Available amoxicillin 875 mg-potassiu m clavulanate 125 mg tablet TAKE 1 TABLET BY MOUTH TWICE A DAY FOR 7 DAYS 02/20 completed Not Available Not Available Not Available esomeprazol e magnesium 20 mg capsule,del ayed release active Not Available Not Available Not Available escitalopra m 20 mg tablet 01/10 completed Not Available Not Available Not Available rosuvastati n 10 mg tablet 01/10 completed Not Available Not Available Not Available rosuvastati n 40 mg tablet TAKE 1 TABLET BY MOUTH EVERY DAY active Not Available Not Available No t Available duloxetine 60 mg capsule,del ayed release TAKE 1 CAPSULE BY MOUTH EVERY DAY active Not Available Not Available No t Available BD Ultra-Fine Mini Pen Needle 31 gauge x 12/07 completed Not Available Not Available Not Available Byetta 5 mcg/dose (250 mcg/mL)1.2 mL subcutaneou s pen injector 01/10 completed Not Available Not Available Not Available BD Ultra-Fine Short Pen Needle 31 gauge x 02/06 completed Not Available Not Available Not Available Symbicort 80 mcg-4.5 mcg/actuati on HFA aerosol inhaler TAKE 2 (TWO) PUFFS BY MOUTH 2 TIMES DAILY active Not Available Not Available No t Available OneTouch Delica Lancets 33 gauge 01/10 completed Not Available Not Available Not Available esomeprazol e magnesium DR 2.5 mg granules delayed release for susp active Not Available Not Available Not Available Trulicity 0.75 mg/0.5 mL subcutaneou s pen injector INJECT 0.5 ML SUBCUTANE OUSLY EVERY WEEK active Not Available Not Available No t Available OneTouch Ultra Blue Test Strip 01/10 completed Not Available Not Available Not Available OneTouch Ultra2 Meter 01/10 completed Not Available Not Available Not Available Fluzone Quad (PF) 60 mcg (15 mcg x 4)/0.5 mL IM syringe active Not Available Not Available N ot Available Afluria Qd 2018- (36 mos up)(PF)60 mcg (15 mcg x4)/0.5 mL IM syringe active Not Available Not Available N ot Available Vitals Date Recorded Body height Body mass index (BMI) Body weight Heart rate Oxygen saturation Oxygen saturation in Arterial blood by Pulse oximetry Body temperature Systolic And Diastolic Provider Name and Address Organization Details Last Updated DateTime 4 177.8 cm 37.7 kg/m2 586305. 14 g 60 /min 98 % 98 % 97.8 [degF] 148/77 mm[Hg] Melani Patrick MA [facility] 4 12:12:32 Date Recorded Systolic And Diastolic Provider Name and Address Organization Details Last Updated DateTime 02/20/2025 134/84 mm[Hg] Narciso Yepez MD Attn: [address] [place], [address], [place] [facility] 02/20/2025 10:48:21 Date Recorded Body height Body mass index (BMI) Body weight Heart rate Oxygen saturation Oxygen saturation in Arterial blood by Pulse oximetry Body temperature Systolic And Diastolic Provider Name and Address Organization Details Last Updated DateTime 5 177.8 cm 37 kg/m2 347557. 18 g 62 /min 99 % 99 % 97.5 [degF] 144/79 mm[Hg] Rima Jain MA [facility] 5 10:27:24 Date Recorded Body height Body temperature Body mass index (BMI) Body weight Heart rate Pain severity - 0-10 verbal numeric rating [Score] - Reported Systolic And Diastolic Provider Name and Address Organization Details Last Updated DateTime 5 177.8 cm 96.6 [degF] 37.7 kg/m2 261347. 79 g 60 /min 0 146/80 mm[Hg] Leslee Downey LPN [facility] 5 14:57:44 Date Recorded Body height Body mass index (BMI) Body weight Heart rate Systolic And Diastolic Provider Name and Address Organization Details Last Updated DateTime 07/01/2025 177.8 cm 36.5 kg/m2 538029.6 1 g 52 /min 124/73 mm[Hg] Yarely Saenz MA [facility] 07/01/2025 10:43:59 Date Recorded Heart rate Systolic And Diastolic Provider Name and Address Organization Details Last Updated DateTime 07/18/2024 54 /min 146/78 mm[Hg] Narciso Yepez MD Attn: Accounting[address] [facility], [place], [address], [facility] 07/18/2024 17:05:51 Date Recorded Body height Body mass index (BMI) Body weight Heart rate Systolic And Diastolic Provider Name and Address Organization Details Last Updated DateTime 07/18/2024 177.8 cm 37.2 kg/m2 103218.1 7 g 53 /min 153/82 mm[Hg] Yarely Saenz [place] [facility] 07/18/2024 16:53:39 Social History Question Answer Notes LastModified by testbirds Details LastModified Time Tobacco Smoking Status Never Smoker Yarely Saenz MA null, [facility] 11/06/2023 11:39:15 Do You Have An Advance Directive? Yes Information n ot available 05/04/2025 In The 14 Days Before Symptom Onset, Have You Had Close Contact With A Laboratory-confirm ed COVID-19 While That Case Was Ill? No Information n ot available 05/04/2025 In The 14 Days Before Symptom Onset, Have You Had Close Contact With A Person Who Is Under Investigation For COVID-19 While That Person Was Ill? No Information not available 05/04/2025 Have You Been To An Area Known To Be High Risk For COVID-19? No Information not available 05/04/2025 Do You Have A Medical Power Of [employer]? Yes Information not available 05/04/2025 What Was The Date Of Your Most Recent Tobacco Screening? 07/01/2025 Information not available 07/01/2025 Sex: Unknown Functional Status Question Answer Note LastModified by testbirds Details LastModified Time Do you use any illicit or recreational drugs? No Information not available 11/06/2023 Do you or have you ever used any other forms of tobacco or nicotine? No Information not available 11/06/2023 What is your level of alcohol consumption? None Information not available 11/06/2023 Mental Status None recorded. Family History Relationship Description Onset Age of this Age Resolved Age Notes LastModified by Organization Details LastModified Time Father No current problems or disability 57 athero sclero sis Not available 11/06/2023 12:24:28 Mother No current problems or disability T2DM, alive Not available 11/06/2023 12:24:41 Sister No current problems or disability 23 Lympho ma Not available 11/06/2023 12:27:39 Sister No current problems or disability 28 Ovaria n Not available 11/06/2023 12:28:42 Brother No current problems or disability 27 Murmur , sudden (cause : hole in heart) [place] Not available 11/06/2023 12:26:36 Medical History No medical history recorded. Immunizations Vaccine Type Date Status Note Provider Nam e and Address Organization Details Recorded Time Influenza, split virus, trivalent, preservative 4 completed Not Available [facility] 07/01/2025 10:09:36 Influenza, split virus, trivalent, preservative 5 completed Not Available [facility] 07/01/2025 10:09:36 Tdap 9 completed Not Available [facility] 07/01/2025 10:09:36 Influenza, split virus, quadrivalent, PF 9 completed Not Available [facility] 07/01/2025 10:09:36 COVID-19, mRNA, LNP-S, PF, 100 mcg/0.5mL dose or 50 mcg/0.25mL dose 1 completed Not Available [facility] 07/01/2025 10:09:36 COVID-19, mRNA, LNP-S, PF, 100 mcg/0.5mL dose or 50 mcg/0.25mL dose 1 completed Not Available [facility] 07/01/2025 10:09:36 COVID-19, mRNA, LNP-S, PF, 30 mcg/0.3 mL dose 1 completed Not Available [facility] 07/01/2025 10:09:36 Influenza, split virus, quadrivalent, PF 1 completed Not Available [facility] 07/01/2025 10:09:36 Hep B, adult 1 completed Not Available [facility] 07/01/2025 10:09:36 zoster recombinant 1 completed Not Available [facility] 07/01/2025 10:09:36 zoster recombinant 2 completed Not Available [facility] 07/01/2025 10:09:36 COVID-19, mRNA, LNP-S, PF, 30 mcg/0.3 mL dose, jaspal-sucrose 2 completed Not Available [facility] 07/01/2025 10:09:36 Pneumococcal conjugate PCV20, polysaccharide PKI220 conjugate, adjuvant, PF 2 completed Not Available [facility] 07/01/2025 10:09:36 COVID-19, mRNA, LNP-S, bivalent, PF, 30 mcg/0.3 mL dose 2 completed Not Available [facility] 07/01/2025 10:09:36 pneumococcal polysaccharide PPV23 2 completed Not Available [facility] 07/01/2025 10:09:36 Influenza, split virus, quadrivalent, PF 2 completed Not Available [facility] 07/01/2025 10:09:36 HepB-CpG 3 completed Not Available [facility] 07/01/2025 10:09:36 COVID-19, mRNA, LNP-S, PF, jaspal-sucrose, 30 mcg/0.3 mL 3 completed Not Available [facility] 07/01/2025 10:09:36 Influenza, MDCK, quadrivalent, PF 3 completed Not Available [facility] 07/01/2025 10:09:36 RSV, recombinant, protein subunit RSVpreF, adjuvant reconstituted, 0.5 mL, PF 4 completed Not Available [facility] 07/01/2025 10:09:36 HepB-CpG 4 completed Not Available [facility] 07/01/2025 10:09:36 COVID-19, mRNA, LNP-S, PF, jaspal-sucrose, 30 mcg/0.3 mL 4 completed Not Available [facility] 07/01/2025 10:09:36 Tdap 4 completed Melani Patrick MA null, [place] [facility] 07/18/2024 17:26:46 Influenza, split virus, trivalent, PF 4 completed Naricso Yepez MD Attn: Accounting[address] [facility], [place], [address], [facility] 07/18/2024 18:04:57 Past Encounters Encounter ID Performer Location Encounter Start Date Encounter Closed Date Diagnosis/Indication Diagnosis SNOMED-CT Code Diagnosis ICD10 Code Diagnosis IMO Codes Diagnosis Note [id number] SHANIA Kidd [address] [place] [address] 02/03/2020 13:20:40 02/04/2020 20:56:06 Suspected COVID-19 631947703 Z03.818 D/w pt the current pandemic of COVID-19 and call for social isolation in order to blunt the curve and minimize risk and spread. Encouraged patient and family to take restrictio ns seriously. They have verbalized understand ing of such. Viral syndrome 116923978 B34.9 [id number] MARYANNE ROMERO MD [facility] [address] [facility] [address] [place] [address] 11/06/2023 11:28:51 11/14/2023 12:13:41 Degeneration of cervical intervertebral disc 71810310 M50.30 Chronic, Diagnosed 2-3 years ago (~2020)Pt had loss of feeling, numbness, tingling, pain and stiffness in a c ape-like distributi on.Surgery done for correction : C3,4,5 replacemen t on 08/2022- Pt denies having any numbness or tingling.- continued stiffness. - denies any pain- Strict ED precaution s give: New onset: Numbness or tingling., Weakness., Pain. Type 2 chad betes mellitus 79039000 E11.9 Chronic, controlled (2021 A1c, <6.5)Goal A1c: <6.5- Check A1c- Diabetic Eye exam- incomplete , last: 2021- Diabetic Foot exam- incomplete , last: 2021- Cont. Trulicity weekly F/u in 1-2m for medication refills (trulicity ), Diabetic foot exam Obesity 529932596 E66.9 Current weight: 261.2ozBMI : 37.5Discus sed diet as the mainstay of losing weight. Goal 10% TBW loss in 3 months.30- 40 mins of moderate intensity physical activity recommende d, 3-4x/wk. Thoracic back pain 91940 8004 M54.6 Constant pain in his thoracic spine, hx of degenerati ve disc disease.Sp ecific positions trigger pain: 7-8/10, Burning pain, does not radiateAt rest 2/10- Pt advised: If patients XR shows degenerati ve disc disease, will order MRI Active or passive immunization 038353525 Z23 Pt deferred Tdap for next visit.Pt states he is upto date with his other medication s Hyperlipidemia 74468752 E78.5 last checked over 1 year ago.- Atorvastat in QD Acute sinusitis 79426982 J01.90 tenderness to palpation of frontal and (L) maxillary sinus [id number] MD OF [facility] [address] [facility] [address] [place] [address] 01/11/2024 12:02:01 01/16/2024 10:45:11 Multiple benign melanocytic nevi 842042910 D22.9 Hx of multiple moles that change color.Prev skin biopsy were all negative. Last dermatolog ist seen: 6-7m ago Chronic insomnia 5813023 04 F51.04 peristent, chronic, unstable- Currently on 250 mg QD- Pt states 250 mg does not help him sleep Last seen by sleep study: Dr. Moyer 8 months ago. Plan:- Refills for trazodone 250 mg QD PM to be given if needed to give him time for his next appointmen t w/ sleep medicine specialist or dr. Moyer.- Discussed sleep hygiene.- Recommende d patient that it would be more beneficial to cont. seeing his most recent sleep study Doctor. Degenerati on of cervical intervertebral disc 08085959 M50.30 Chronic, Diagnosed 2-3 years ago (~2020)[place] done for correction : C3,4,5 replacemen t on 2Con trolled meloxicam and gabapentin .- Strict ED precaution s give: New onset: Numbness or tingling., Weakness., Pain. Type 2 chad willard mellitus 87063293 E11.9 Chronic, controlled (11/06/23: 6.0%)Goal A1c: <7.5- Check A1c- Diabetic Eye exam- incomplete , last: 2021- Diabetic Foot exam- incomplete , last: 2021- Cont. Trulicity weeklyPrev iously on metformin 1,000 mg. StoppedPla n:- Trulicity 0.75 mg/ 0.5 mL subcutaneo us pen injector: Inject 0.5mL per week- Start metformin 500 mg once a day- Discussed diet as the mainstay of losing weight. Goal 10% TBW loss in 3 months.30- 40 mins of moderate intensity physical activity recommende d, 3-4x/wk- follow up in 3 month A1C Obesity 275210501 E66.9 Current weight: 263.1ozBMI : 37.7Discus sed diet as the mainstay of losing weight. Goal 10% TBW loss in 3 months.30- 40 mins of moderate intensity physical activity recommende d, 3-4x/wk. Plan:- Currently on trulicity Active or passive immunization 850595819 Z23 Pt deferred Tdap for next visit.Pt states he is up to date with his other medication s Hyperlipidemia 24037700 E78.5 Chronic controlled 11/06/23: LDL 104 Plan- Cont. Rosuvastat in 40 mg QD- repeat in 3-6m Degenerati on of intervertebral disc 84191156 M51.9 Chronic, Controlled with meloxicam 15 mg daily. Constant pain in his thoracic spine, hx of degenerati ve disc disease.Sp ecific positions trigger pain: 7-8/10, Burning pain, does not radiate At rest 0/10 = w/ meloxicam (QAM)- consider H.pylori test at next visit. Essential hypertension 65556117 I10 BP Goal: <140/90BP at home Controlled : 130s/70sDi scussed: Low sodium balanced diet, moderate exercise at least 3-4 times per week for an average of 40 minutes, limiting alcohol to 1 drink per day (F) or 2 drinks per day (M), and smoking cessation if currently smoking. Plan:- Cont. Lisinopril - HCTZ 20-25mg Vitamin D deficiency 347 31260 E55.9 Chronic, Controlled Plan:- Cont. Vit D2 50,000 unit Q weekly Mixed anxi ety and depressive disorder 467064539 F41.8 chronic, controlled with- duloxetine 60 mg QD Gastroesop hageal reflux disease 284580661 K21.9 Chronic, controlled Plan:- Cont. 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 Moyer Plan:- Refills for trazodone 250 mg QD PM to be given if needed to give him time for his next appointmen t w/ sleep medicine specialist or Dr. Moyer.- Discussed sleep hygiene.- Recommende d patient that it would be more beneficial to cont. seeing his most recent sleep study Doctor. Degenerati on of intervertebral disc 95194461 M51.9 Chronic, Controlled with meloxicam 15 mg daily. Constant pain in his thoracic spine, hx of degenerati ve disc disease.Sp ecific positions trigger pain: 7-8/10, Burning pain, does not radiate At rest 0/10 = w/ meloxicam (QAM) Degenerati on of cervical intervertebral disc 45019622 M50.30 Chronic, Diagnosed 2-3 years ago (~2020)[place] pri[place] done for correction : C3,4,5 replacemen t on 2Con trolled meloxicam and gabapentin .- Strict ED precaution s give: New onset: Numbness or tingling., Weakness., Pain. Type 2 chad betes mellitus 40814703 E11.9 Chronic, controlled ; 6.2%Goal A1c: <7.5- Check A1c- Diabetic Eye exam- [facility] on 09/2024- Diabetic Foot exam- [facility] on 08/2024- Cont. Trulicity weeklyPrev iously on metformin 1,000 mg. Stopped Plan:- Trulicity 0.75 mg/ 0.5 mL subcutaneo us pen injector: Inject 0.5mL per week- Cont. metformin 500 mg once a day (consider ER for GI discomfort at next visit)- Discussed diet as the mainstay of losing weight. Goal 10% TBW loss in 3 months.30- 40 mins of moderate intensity physical activity recommende d, 3-4x/wk- follow up in 3 month A1C Obesity 201947901 E66.9 Current weight: 259.5 lbs (prev: 263.1oz)BM I: 37.2Discus sed diet as the mainstay of losing weight. Goal 10% TBW loss in 3 months.30- 40 mins of moderate intensity physical activity recommende d, 3-4x/wk. Plan:- Currently on trulicity Active or passive immunization 707210150 Z23 TDAP todayFlu today Hyperlipidemia 84222118 E78.5 Chronic controlled 11/06/23: LDL 104 Plan- Cont. Rosuvastat in 40 mg QD Essential hypertension 93964083 I10 BP Goal: <140/90BP Controlled : no, 146/78 (patient states he did not take his meds today)Disc ussed: Low sodium balanced diet, moderate exercise at least 3-4 times per week for an average of 40 minutes, limiting alcohol to 1 drink per day (F) or 2 drinks per day (M), and smoking cessation if currently smoking. Plan:- Cont. Lisinopril - HCTZ 20-25mg- Blood pressure log next visit. Mixed anxi ety and depressive disorder 994553341 F41.8 chronic, controlled with- duloxetine 60 mg QD Gastroesop hageal reflux disease 394675504 K21.9 Chronic, controlled GI EGD: biopsys pending Plan:- Cont. Omeprazole 20 mg BID Intermitte nt explosive outburst 97148858 F91.8 Chronic, Controlled - Oxcarbazep ine BID [id number] KUSH MARINELLI MD [place] [address] [address] [facility] [address] [place] [address] 02/20/2025 09:59:30 02/27/2025 08:08:55 Chronic insomnia 014583311 F51.04 peristent, chronic, unstable- Currently on 250 mg QD- Pt states 250 mg does not help him sleep Last seen by sleep study: Dr. Moyer Plan:- Refills for trazodone 250 mg QD PM to be given if needed to give him time for his next appointmen t w/ sleep medicine specialist or Dr. Moeyr.- Discussed sleep hygiene.- Recommende d patient that it would be more beneficial to cont. seeing his most recent sleep study Doctor.- sleep study referral sent in [facility] on of cervical intervertebral disc 33984300 M50.30 Chronic, Diagnosed 2-3 years ago (~2020)[place] done for correction : C3,4,5 replacemen t on on trolled meloxicam and gabapentin .- Strict ED precaution s give: New onset: Numbness or tingling., Weakness., Pain. Type 2 chad betes mellitus 74119730 E11.9 Chronic, controlled ; 6.2%Goal A1c: <7.5- Check A1c- Diabetic Eye exam- [facility] on 09/2024- Diabetic Foot exam- [facility] on 08/2024- Cont. Trulicity weekly, metformin 500 Plan:- Trulicity 0.75 mg/ 0.5 mL subcutaneo us pen injector: Inject 0.5mL per week- Cont. metformin 500 mg once a day (consider ER for GI discomfort at next visit)- Discussed diet as the mainstay of losing weight. Goal 10% TBW loss in 3 months.30- 40 mins of moderate intensity physical activity recommende d, 3-4x/wk- follow up in 3 month A1C Obesity 491968834 E66.9 Current weight: 258.1 lbsBMI: 37Discusse d diet as the mainstay of losing weight. Goal 10% TBW loss in 3 months.30- 40 mins of moderate intensity physical activity recommende d, 3-4x/wk. Plan:- Currently on trulicity Hyperlipidemia 70457517 E78.5 Chronic controlled 11/06/23: LDL 104 Plan- Cont. Rosuvastat in 40 mg QD- repeat lipid panel Essential hypertension 08550735 I10 BP Goal: <140/90BP Controlled : yes (134/84)Di scussed: Low sodium balanced diet, moderate exercise at least 3-4 times per week for an average of 40 minutes, limiting alcohol to 1 drink per day (F) or 2 drinks per day (M), and smoking cessation if currently smoking. Plan:- Cont. Lisinopril - HCTZ 20-25mg- Blood pressure log next visit. Mixed anxi ety and depressive disorder 004832762 F41.8 chronic, controlled with- duloxetine 60 mg QD Gastroesop hageal reflux disease 586169738 K21.9 Chronic, controlled GI EGD: biopsys pending Plan:- Cont. Omeprazole 20 mg BID Intermitte nt explosive outburst 46275229 F91.8 Chronic, Controlled - Oxcarbazep ine BID [id number] [facility] [address] [place] [address] 05/04/2025 14:17:50 05/05/2025 07:41:27 Diabetic skin disorder 7301412130 E11.196 [id number] New patient exam performed. Diabetic foot exam performed. Diabetic education provided. Discussed proper drying of the 4th interspace bilateral foot to prevent further maceration which could ultimately lead to ulceration . Return to clinic 1 year or sooner with acute issues [id number] Franco Whaley MD [place] [address] [address] [facility] [address] [place] [address] 07/01/2025 10:08:43 07/07/2025 11:22:50 Chronic maxillary sinusitis 17719670 J32.0 2493 Acute on chronic, 1.5 weeks of nasal congestion , post nasal drip, and sinus tenderness - ENT referral to optimize management of chronic sinusitis- Prescribed 20 mg prednisone for 5 days to help alleviate flare Obstructiv e sleep apnea syndrome [id number] G47.33 [id number] Chronic, stable , reports needs adjustment of CPAP.- sleep study referral for CPAP adjustment Chronic insomnia [id number] F51.04 peristent, chronic, unstable- Currently on 250 mg QD- Pt states 250 mg does not help him sleep Last seen by sleep study: Dr. Moyer Plan:- Cont. trazodone 250 mg QD PM - to be given if needed to give him time for his next appointmen t w/ sleep medicine specialist or Dr. Moyer.- Discussed sleep hygiene.- Recommende d patient that it would be more beneficial to cont. seeing his most recent sleep study Doctor.- sleep study referral sent in [facility] on of cervical intervertebral disc [id number] M50.30 Chronic, Diagnosed 2-3 years ago (~2020)[place] pri[place] done for correction : C3,4,5 replacemen t on 2Con trolled meloxicam and gabapentin .- Strict ED precaution s give: New onset: Numbness or tingling., Weakness., Pain. Obesity [id number] E66.9 Current weight: 258.1 lbsBMI: 37Discusse d diet as the mainstay of losing weight. Goal 10% TBW loss in 3 months.30- 40 mins of moderate intensity physical activity recommende d, 3-4x/wk. Plan:- Currently on trulicity Essential hypertension [id number] I10 BP Goal: <140/90BP Controlled : yesDiscuss ed: Low sodium balanced diet, moderate exercise at least 3-4 times per week for an average of 40 minutes, limiting alcohol to 1 drink per day (F) or 2 drinks per day (M), and smoking cessation if currently smoking. Plan:- Cont. Lisinopril - HCTZ 20-25mg Health Concerns Section Related Observation LastModified by Organization Detai ls LastModified Time None Recorded Concern Status LastModified by Organization Details LastModified Time None Recorded Advance Directives Directive Y: Payers Insurance Date Sequence Insurance Name Policy Number Policy Warren Covered Member ID Warren Member ID Guarantor Name 11/06/2023 1 [facility] - DOS PRIOR TO 2021 (MEDICAID REPLACEMENT - HMO) Fish Pinon [id number] Fish Pinon 07/07/2025 1 [facility] - DOS ON OR AFTER 21 (MEDICAID REPLACEMENT - HMO) Fish Pinon [id number] Fish Pinon Notes Date Note Type Note Provider Name and Address Organization Details Recorded Time 4 text/html 57 yo M with pmhx of T2DM, HLD, obesity, spinal stenosis w/ degenerative disc disease, Surgical for V3,4,5 replacement, presents to the office to review her medications. Pt also would like a referral for a business continuity management director due to his hx of moles. 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 BID - for explosive bhv.Symbicort 80-4.5 2 buff BID - nasal congestion.albuterol (ventolin) 2 puff QDtriamcinolone acetonide 55 mcg - allergiesHydrocortisone 2.5%Triamcinolone 0.1% creamTrazodone 250 mgTrulicirt 0.5 ml/weekMontelukast 16 mg QDgabapentine 300 mg 2 capsules TID - neuropathic painLisinopril - HCTZ 20-25mgRosuvastatin 40 mg QDDuloxetine 60 mg QD - mixed anxiety and depressionOxcarbazepine BIDOmeprazole 20 mg QDMupirocin 2% PRN Lauren Hancock MD Attn: Accounting,[address] [place], [address], [facility] 01/15/2024 21:21:21 4 text/html ROS as noted in the HPI 58 yo M with pmhx of T2DM, HLD, obesity, spinal stenosis w/ degenerative disc disease, Surgical for V3,4,5 replacement, presents to the office for routine follow up and medication refills. Pt denies having any fevers, chills, SOB, chest pain, N/V, or abdominal pain. 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.Symbicort 80-4.5 2 buff BID - nasal congestion.albuterol (ventolin) 2 puff QDtriamcinolone acetonide 55 mcg - allergiesHydrocortisone 2.5%Triamcinolone 0.1% creamTrazodone 250 mgTrulicity 0.5 ml/weekMontelukast 16 mg QDgabapentine 300 mg 2 capsules TID - neuropathic painLisinopril - HCTZ 20-25mgRosuvastatin 40 mg QDDuloxetine 60 mg QD - mixed anxiety and depressionOxcarbazepine BIDOmeprazole 20 mg QDMupirocin 2% PRN RIMA WASHINGTON DO Attn: Accounting,[address] [place], [address], [facility] 07/21/2024 10:36:28 5 text/html ROS as noted in the HPI 58 yo M with pmhx of T2DM, HLD, obesity, spinal stenosis w/ degenerative disc disease, Surgical for V3,4,5 replacement, presents to the office for DM follow up and medication refills. Pt denies having any fevers, chills, SOB, chest pain, N/V, or abdominal pain. Fish expressed concern with taking too many medications and them not working. Mostly related with his mood, not the diabetes. States that he was put on the oxcarbazepine for tempers and he still doesn't feel like he has his mood controlled.Blood pressure uncontrolled. 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.Symbicort 80-4.5 2 buff BID - nasal congestion.albuterol (ventolin) 2 puff QDtriamcinolone acetonide 55 mcg - allergiesHydrocortisone 2.5%Triamcinolone 0.1% creamTrazodone 250 mgTrulicity 0.5 ml/weekMontelukast 16 mg QDgabapentine 300 mg 2 capsules TID - neuropathic painLisinopril - HCTZ 20-25mgRosuvastatin 40 mg QDDuloxetine 60 mg QD - mixed anxiety and depressionOxcarbazepine BIDOmeprazole 20 mg QDMupirocin 2% PRN KUSH MARINELLI MD Attn: Accounting,[address] [facility], [place], [address], [facility] 02/26/2025 14:43:37 5 text/html Patient presents to clinic for diabetic foot exam. He is doing quite well and has no complaints at this time. Coleman Arce DPM [address], [place], [address], [facility] 05/04/2025 15:09:09 5 text/html ROS as noted in the HPI 59 y.o male with a PMHx of chronic sinusitis and BIN presents to the clinic with 1.5 week hx of worsening nasal discharge and sinus pressure, with associated non-productive cough. Pt's pain is a 5/10 in severity localized to the nasal sinuses. Pt has been put on several nasal decongestants and oral anti-histamine by a previous ENT, though he hasn't seen a ENT in a few years. Pt reports relief with short course of steroids or steriod injection during his flares. Pt denies any fever, chills, sick contact, SOB, CP, palpation, recent travel, or nausea.Pt also would like a referral for his chronic insomnia for a CPAP readjustment and trazadone.Pt also needs other medication refill however is unsure which ones. He will message us via portal. Franco Whaley MD Attn: Accounting,[address] [facility], [place], [address], [facility] 07/06/2025 10:23:42
== END 2025-08-05 14:24 | disposition home or self-care (01) ==
LOC: ANHIMG 14:25
PROVIDERS: Visit Provider Otolaryngology
DX: J32.9 Chronic sinusitis, unspecified (principal)
CPT/HCPCS: 70486